=== PATIENT | male | born 1930 | race Caucasian/White ===

== ENCOUNTER 2016-08-18 14:15 | Observation (INO) | payer MEDICARE ==
[~2016-08-18] VITALS: Ht 180.3 cm; Wt 69.5 kg
[~2016-08-18 14:15] MED LIST: ALLO300T2 PO; ASPI81CH CHEW; B12-1CHW CHEW; FENO160T PO; FURO1TAB62 PO; LEVO75TA3 PO; METO100T9 PO; MULT1TAB84 PO; OMEG12002 PO; POTA-163 PO; TAMS5CAP PO; WELC625T2 PO; ZANT150T2 PO
[2016-08-18 14:19] VITALS: BP 144/71; PULSE 72; RESP 18; TEMP 98.7; O2SAT 98
--- NOTE | 2016-08-18 14:47 | PD ---
Physical Exam Time Seen by Provider: 14:46 Narrative 80 y/o male with weakness, 100 lb weight loss, decreased appetite for one year. Vital signs reviewed. Seen at triage desk. Awaiting bed placement. Data Data Last Documented VS Vital Signs Date Time Temp Pulse Resp B/P Pulse Ox O2 Delivery O2 Flow Rate FiO2 08/18/16 14:19 98.7 72 18 144/71 98 Room Air [facility] Medical Record Reviewed: Yes Supervised Visit with SHABNAM: Juan Chambers Aug 18, 2016 14:47
[2016-08-18] MEDS ORDERED: LOSA25TA PO (20:36)
--- NOTE | 2016-08-18 20:38 | PD ---
HPI Chief Complaint: General Weakness Time Seen by Provider: 20:14 Travel History International Travel<30 days: No Contact w/Intl Traveler<30days: No Traveled to known affect area: No History of Present Illness HPI The patient is an 85 year old male who presents to the [facility] emergency department with a history of generalized weakness that he reports has been a problem for the last year. The patient reports that he lives at home alone. He reports that a neighbor helps him to obtain meals any also supplements with boost shakes. The patient reports that he has a home health nurse comes in twice a week along with the physical therapist twice a week and occupational therapy once a week. He reports that he does have a primary care physician that he saw 2 weeks ago, however he fired that physician. The patient's recent history is significant for approximate 3-4 weeks ago having a syncopal event while on the toilet moving his bowels. He reports that he has a history of colitis and moves his bowels normally 3 times per day. He reports that sometimes it is difficult to make it to the toilet. The patient reports that neighbor helped to get him up off of the floor and with picking him up cause pain along his back. The patient has a large right sided flank hematoma with blood extravasation down that appears older along the right side of the back and the right side of the abdomen. He denies having any chest pain or new shortness of breath. The patient does smoke one pack of cigarettes per day. He reports that he has a smoker's cough. Neither coughing more productive recently. The patient denies any known recent fevers, worsening cough or congestion, neck pain, chest pain, worsening shortness of breath, abdominal pain , vomiting, urinary symptoms, one-sided weakness, slurred speech, facial droop, difficulty with word finding ability, vision changes, or numbness or tingling to his extremities. He reports that he has a history of peripheral vascular disease. He has chronic pain in his legs with standing for prolonged period of time. [facility] Past Medical History Narrative Medical The patient's past medical history is significant for peripheral vascular disease, colitis, hypertension, hyperlipidemia, coronary artery disease status post single-vessel coronary artery bypass grafting, history of a bowel obstruction related to an inguinal hernia status post repair and February 2016, history of hypothyroid disorder. Hx Anticoagulant Therapy: Yes (asa) Arthritis: Yes Blood Disorders: No Heart Rhythm Problems: No Cancer: No Cardiovascular Problems: Yes (htn, bypass) High Cholesterol: Yes Chemotherapy: No Chest Pain: No Congestive Heart Failure: No Cerebrovascular Accident: No Diabetes: No Diminished Hearing: No Endocrine: Yes Gastrointestinal Disorders: Yes (PART OF COLON REMOVED) GERD: Yes Genitourinary: No Headaches: Yes (PAIN IN LEFT SIDE OF SKULL POST HALO/BROKEN NECK) Hepatitis: No Hiatal Hernia: Yes Hypertension: Yes Immune Disorder: No Implanted Vascular Access Dvce: No Kidney Stones: No Medical other: Yes (S/P BROKEN NECK, GOUT) Musculoskeletal: Yes Neurologic: No Psychiatric: No Reproductive: No Respiratory: No Immunizations Current: Yes Migraines: No Myocardial Infarction: No Radiation Therapy: No Renal Failure: Yes Seizures: No Thyroid Disease: Yes Ulcer: No Tetanus Vaccination: < 5 Years Influenza Vaccination: No Past Surgical History Narrative Surgical The patient's past surgical history is significant for an abdominal aortic aneurysm repair, appendectomy, hernia repair, cholecystectomy, carotid endarterectomy, dental extractions, cervical halo placement and removal, history of coronary artery bypass grafting of 1 vessel, angioplasty of the right lower extremity. Abdominal Surgery: Yes (AAA REPAIR, COLON RESECTION, APPENDECTOMY) AICD: No Appendectomy: Yes Arteriovenous Shunt: No Body Medical Devices: STERNAL WIRES, MESH FROM HERNIA REPAIR Cardiac Surgery: Yes (CABG 2002 ) Coronary Artery Bypass Graft: Yes Ear Surgery: Yes Endocrine Surgery: No Eye Surgery: Yes (LEFT PTOSIS REPAIRX2) Genitourinary Surgery: No Gynecologic Surgery: No Insulin Pump: No Joint Replacement: No Neurologic Surgery: Yes (C2 (HALO)- 2007, bilateral CAROTID ENDARTERECTOMY) Oral Surgery: Yes (ALL TEETH EXTRACTED) Pacemaker: No Thoracic Surgery: Yes Other Surgery: Yes Social History Alcohol Use: Yes (OCCASIONALLY) Tobacco Use: Yes (1 PPD) Substance Use: No Allergies-Medications (Allergen,Severity, Reaction): Coded Allergies: Altace (Unverified Allergy, Severe, SWOLLEN TONGUE, 08/18/16) Reported Meds & Prescriptions Reported Meds & Active Scripts Active Reported Losartan (Losartan Potassium) 25 Mg Tab 25 Mg PO DAILY Levothyroxine (Levothyroxine Sodium) 75 Mcg Tab 75 Mcg PO DAILY Aspirin 81 Mg Chew 81 Mg CHEW DAILY Zantac (Ranitidine HCl) 150 Mg Tab 150 Mg PO DAILY Allopurinol 300 Mg Tab 300 Mg PO DAILY Metoprolol Succinate ER 24 HR (Metoprolol Succinate) 100 Mg Tab 100 Mg PO DAILY Review of Systems Except as stated in HPI: all other systems reviewed are Neg General / Constitutional: No: Fever Eyes: No: Visual changes HENT: No: Headaches, Rhinorrhea, Congestion, Neck Pain Cardiovascular: Positive: Dyspnea on exertion, No: Chest Pain or Discomfort Respiratory: Positive: Cough, No: Shortness of Breath Gastrointestinal: Positive: Loss of Appetite, No: Nausea, Vomiting, Diarrhea, Abdominal Pain, Constipation, Changes in Bowel Habits, Indigestion Genitourinary: No: Urgency, Frequency, Dysuria Musculoskeletal: Positive: Myalgias, Arthralgias, Pain Skin: No Rash Neurologic: Positive: Weakness (generalized weakness), No: Focal Abnormalities , Change in Mentation, Slurred Speech, Sensory Disturbance Psychiatric: No: Depression Endocrine: No: Polydipsia Hematologic/Lymphatic: No: Easy Bruising Physical Exam Narrative General: The patient is a well-developed thin appearing male in no acute distress. Head and Neck exam: Head is normocephalic atraumatic. Eyes: EOMI, pupils are equal round and reactive to light. Bulbar conjunctival pallor noted. Nose: Midline septum with pink mucous membranes Mouth: Dentition unremarkable. Moist mucus membranes. Posterior oropharynx is not erythematous. No tonsillar hypertrophy. Uvula midline. Airway patent. Neck: No palpable lymphadenopathy. No nuchal rigidity. No thyromegaly. Cardiovascular: Regular rate and rhythm without murmurs, gallops, or rubs. No pulse deficit to the extremities and simultaneous auscultation and palpation of his radial artery. Lungs: Clear to auscultation bilaterally. No wheezes, rhonchi, or rales. Abdomen: Soft, without tenderness to palpation in all 4 quadrants of the abdomen. No guarding, rebound, or rigidity. Normal bowel sounds are audible. No tenderness on palpation of McBurney's point. Negative [place] sign. The patient on examination of his abdomen has right-sided abdominal ecchymosis that appears older appearing. Extremities: No clubbing or cyanosis. The patient has 1+ pitting edema bilateral lower extremities. 2+ pulses in bilateral upper extremities, 1+ pulses in bilateral lower extremities. The patient has dried feces on his feet. Back: No spinous process tenderness to palpation. The patient has right-sided CVA tenderness with an overlying large hematoma palpated. The patient has ecchymosis below this area of hematoma that crosses the midline slightly over to the left and goes all the way down over his sacrum. Neurologic Exam: Cranial nerves 2-12 were intact on exam. Strength is 4/5 in all 4 extremities. No sensory deficits noted. Skin Exam: No rash noted. The patient has an abrasion to the right lateral forearm. Data Data Last Documented VS Vital Signs Date Time Temp Pulse Resp B/P Pulse Ox O2 Delivery O2 Flow Rate FiO2 08/18/16 23:55 62 20 159/80 96 Nasal Cannula 2 08/18/16 14:19 98.7 Orders Electrocardiogram (08/18/16 20:29) Complete Blood Count With Diff (08/18/16 20:29) Comprehensive Metabolic Panel (08/18/16 20:29) Creatine Kinase (Cpk) (08/18/16 20:29) Ckmb (Isoenzyme) Profile (08/18/16 20:29) Troponin I (08/18/16 20:29) B-Type Natriuretic Peptide (08/18/16 20:29) Prothrombin Time / Inr (Pt) (08/18/16 20:29) Act Partial Throm Time (Ptt) (08/18/16 20:29) Lipase (08/18/16 20:29) Urinalysis - C+S If Indicated (08/18/16 20:29) Magnesium (Mg) (08/18/16 20:29) Thyroid Stimulating Hormone (08/18/16 20:29) Iv Access Insert/Monitor (08/18/16 20:29) Ecg Monitoring (08/18/16 20:29) Oximetry (08/18/16 20:29) Type And Screen (08/18/16 20:29) Ct Thor Spine W/O Contrast (08/18/16 20:29) Ct Lumb Spine W/O Contrast (08/18/16 20:29) Cefazolin 2 Gm Premix (Ancef 2 Gm Premix (08/18/16 20:45) Klke-Dpi-Mtwobs (Booster) Inj (Boostrix (08/18/16 20:45) Ct Brain W/O Iv Contrast(Rout) (08/18/16 20:47) Ct Cerv Spine W/O Contrast (08/18/16 20:47) Ct Thorax/ Chest Wo Iv Contras (08/18/16 22:31) Ct Abd/Pel W/O Iv Contrast (08/18/16 22:31) Aspirin Chew (Aspirin Chew) (08/19/16 09:00) Nitroglycerin 2% Oint (Nitroglycerin 2% (08/18/16 23:15) Admit Order (Ed Use Only) (08/19/16 00:26) Place In Observation (08/19/16 ) Vital Signs (Adult) Q4H (08/19/16 00:27) Activity Oob With Assistance (08/19/16 00:27) Bedside Glucose SHANTA.AC&HS (08/19/16 00:27) Sensor Operator / Telemetry .CONTINUOUS (08/19/16 00:27) Intake + Output SHANTA.QSHIFT (08/19/16 00:27) Diet Heart Healthy (08/19/16 Breakfast) Sodium Chloride 0.9% Flush (Ns Flush) (08/19/16 00:30) Sodium Chloride 0.9% Flush (Ns Flush) (08/19/16 09:00) Acetaminophen (Tylenol) (08/19/16 00:30) Ondansetron Inj (Zofran Inj) (08/19/16 00:30) Basic Metabolic Panel (Bmp) (08/20/16 06:00) Complete Blood Count With Diff (08/20/16 06:00) Resp Oxygen Lionel C Titrat 1-4 L (08/19/16 ) Pt Request For Service (08/19/16 00:27) Ot Request For Service (08/19/16 00:27) Case Management Consult (08/19/16 00:27) Heparin Inj (Heparin Inj) (08/19/16 06:00) Scd Bilateral/Knee High SHANTA.BID (08/19/16 00:27) Naloxone Inj (Narcan Inj) (08/19/16 00:30) Docusate Sodium-Senna (Juliet-Colace) (08/19/16 09:00) Magnesium Hydroxide Liq (Milk Of Magnesi (08/19/16 00:30) Labs Laboratory Tests Test 08/18/16 21:00 Prothrombin Time 11.4 SEC Prothromb Time International 1.0 RATIO Ratio Activated Partial 29.5 SEC Thromboplast Time Sodium Level 139 MEQ/L Potassium Level 5.2 MEQ/L Chloride Level 107 MEQ/L Carbon Dioxide Level 23.4 MEQ/L Anion Gap 9 MEQ/L Blood Urea Nitrogen 44 MG/DL Creatinine 2.14 MG/DL Estimat Glomerular Filtration 30 ML/MIN Rate Random Glucose 81 MG/DL Calcium Level 8.4 MG/DL Magnesium Level 2.5 MG/DL Total Bilirubin 1.2 MG/DL Aspartate Amino Transf 41 U/L (AST/SGOT) Alanine Aminotransferase 39 U/L (ALT/SGPT) Alkaline Phosphatase 209 U/L Total Creatine Kinase 79 U/L Troponin I 0.19 NG/ML B-Type Natriuretic Peptide 4992 PG/ML Total Protein 7.8 GM/DL Albumin 3.1 GM/DL Lipase 72 U/L Thyroid Stimulating Hormone 7.650 uIU/ML 3rd Gen Blood Type A POSITIVE Antibody Screen NEGATIVE White Blood Count 4.7 TH/MM3 Red Blood Count 3.06 MIL/MM3 Hemoglobin 9.3 GM/DL Hematocrit 29.9 % Mean Corpuscular Volume 97.7 FL Mean Corpuscular Hemoglobin 30.3 PG Mean Corpuscular Hemoglobin 31.0 % Concent Red Cell Distribution Width 19.8 % Platelet Count 121 TH/MM3 Mean Platelet Volume 8.5 FL Neutrophils (%) (Auto) 60.8 % Lymphocytes (%) (Auto) 17.7 % Monocytes (%) (Auto) 10.9 % Eosinophils (%) (Auto) 9.8 % Basophils (%) (Auto) 0.8 % Neutrophils # (Auto) 2.8 TH/MM3 Lymphocytes # (Auto) 0.8 TH/MM3 Monocytes # (Auto) 0.5 TH/MM3 Eosinophils # (Auto) 0.5 TH/MM3 Basophils # (Auto) 0.0 TH/MM3 CBC Comment DIFF FINAL Differential Comment MDM Medical Decision Making Medical Screen Exam Complete: Yes Emergency Medical Condition: Yes Medical Record Reviewed: Yes Interpretation(s) Last Impressions Chest CT 08/18/162230 Signed Impressions: Service Date/Time: Thursday, August 18, 2016 23:01 - CONCLUSION: Moderate size right pleural effusion and a small left pleural effusion. Prominent mucous plug left bronchus. Some consolidation in the right middle lobe. Dense coronary atherosclerotic disease Héctor Cordova MD Abdomen/Pelvis CT 08/18/162230 Signed Impressions: Service Date/Time: Thursday, August 18, 2016 23:01 - CONCLUSION: Numerous chronic findings. No etiology for abdominal pain is identified. Extensive hernia mesh. Diffuse abdominal wall edema. Free fluid throughout the abdomen Héctor Cordova MD Head CT 08/18/162046 Signed Impressions: Service Date/Time: Thursday, August 18, 2016 22:50 - CONCLUSION: Normal examination. Mild diffuse atrophy is unchanged. Héctor Cordova MD Cervical Spine CT 08/18/162046 Signed Impressions: Service Date/Time: Thursday, August 18, 2016 22:50 - CONCLUSION: Degenerative disease at nearly every level. No evidence of an acute fracture, lytic or blastic lesion. Héctor Cordova MD Thoracic Spine CT 08/18/162028 Signed Impressions: Service Date/Time: Thursday, August 18, 2016 23:08 - CONCLUSION: Compression fractures of T12 and T6 I suspect both are chronic. No definite acute fractures identified. Endplates are grossly intact. Héctor Cordova MD Lumbar Spine CT 08/18/162028 Signed Impressions: Service Date/Time: Thursday, August 18, 2016 23:08 - CONCLUSION: Stable compression fracture of T12. The lumbar spine is unremarkable. Stable in alignment. Héctor Cordova MD Differential Diagnosis Symptomatic anemia related to large flank hematoma, versus intra-abdominal trauma, versus hypothyroid, versus electrolyte derangements, versus dehydration , versus renal failure, versus acute coronary syndrome Narrative Course During the course of the patients emergency department visit, the patients history, examination, and differential diagnosis were reviewed with the patient. The patient had IV access obtained and blood work sent for analysis. The patient was placed on a site monitor with oximetry and blood pressure monitoring. A CT scan of the head, neck, thorax, abdomen and pelvis, T-spine, L -spine was ordered. The patient was initially provided an update of his tetanus, Ancef 2 g IV for prophylaxis of his wounds from the syncopal event. The patients laboratory studies were reviewed and remarkable for a white count of 4.7, hemoglobin 9.3 which is compared to previously with a last hemoglobin of 9.1, platelets 121, monocytosis at 10.9. CMP is remarkable for potassium of 5.2, BUN 44, creatinine 2.14 which is somewhat similar to previous renal insufficiency in this patient, calcium 8.4, total bilirubin 1.2, AST 41, alkaline phosphatase 209. CPK 79, troponin I 0.19, TSH 7.65. The patient's generalized weakness could partly be related to the patient's hypothyroid state. Given the patient's elevated troponin which could be related to the patient's renal insufficiency, as the patient denies having any chest pain or shortness of breath, the patient was given aspirin 162 mg by mouth 1, nitroglycerin 1 inch the chest wall. PT 11.4, PTT 29.5, urinalysis shows 25 RBCs, 9 wbc's, rare bacteria, 46 hyaline casts culture is indicated. Radiology studies were reviewed and remarkable for a CT scan of the head and neck that showed no acute abnormality. CT scan of the thorax revealed a moderate size right pleural effusion and small left pleural effusion. Prominent mucus plugging of the left bronchus, some consolidation in the right middle lobe, dense coronary atherosclerotic disease. CT scan of the abdomen and pelvis showed numerous chronic findings, no etiology [place] the patient's abdominal pain, extensive hernia mesh. Diffuse abdominal wall edema, free fluid through the abdomen. T-spine and L-spine x-rays revealed compression fractures that appear to be chronic, stable. The patients results were discussed with the patient, including the plan of care. I explained that further testing and/ or monitoring is indicated based on the patients history, examination, and/ or laboratory findings. Therefore, I recommended admission for additional evaluation. The patient expressed understanding and was agreeable with this plan. The patient was admitted to the hospital in stable condition and [facility] Physician Communication Physician Communication The patient's case was discussed with Dr. Latif who did agree to admit the patient for further evaluation and treatment at this time. Diagnosis Primary Impression: Syncope Qualified Code: R55 - Syncope, unspecified syncope type Additional Impressions: Generalized weakness Pleural effusion Admitting Information Admitting Physician Requests: it Julieth Lehman MD Aug 18, 2016 20:38
[2016-08-18] MEDS ORDERED: ceFAZolin 2 GM PREMIX 50 ML IV ONE (20:45)
[2016-08-18] MEDS ORDERED: DIPHTH/TETANUS/ACEL PERTUSSIS (BOOSTER) 0.5 ML VIAL/PFS IM ONE (20:45)
[2016-08-18 21:01] VITALS: RESP 16; O2SAT 96
[2016-08-18 21:45] LABS: AUTOMATED NEUTROPHIL # 2.8 TH/MM3 (1.8-7.7); BASOPHIL % 0.8 % (0.0-2.0); EOSINOPHIL # 0.5 TH/MM3 (0-0.4); EOSINOPHIL % 9.8 % (0.0-4.0); HEMATOCRIT 29.9 % (39.0-51.0); HEMO FLAGS DIFF FINAL; LYMPH % 17.7 % (9.0-44.0); LYMPHOCYTE # 0.8 TH/MM3 (1.0-4.8); MEAN CELL VOLUME 97.7 FL (80.0-100.0); MEAN CORPUSCULAR HEMOGLOBIN 30.3 PG (27.0-34.0); MONO % 10.9 % (0.0-8.0); NEUT % 60.8 % (16.0-70.0); PLATELET COUNT 121 TH/MM3 (150-450); RED BLOOD COUNT 3.06 MIL/MM3 (4.50-5.90); RED CELL DISTRIBUTION WIDTH 19.8 % (11.6-17.2); WHITE BLOOD COUNT 4.7 TH/MM3 (4.0-11.0)
[2016-08-18 21:58] LABS: ALT (GPT) 39 U/L (12-78); APTT (PATIENT) 29.5 SEC (24.3-30.1); PROTHROMBIN TIME - PATIENT 11.4 SEC (9.8-11.6)
[2016-08-18 22:12] LABS: ALKALINE PHOSPHATASE 209 U/L (45-117); ANION GAP 9 MEQ/L (5-15); AST (GOT) 41 U/L (15-37); BICARBONATE 23.4 MEQ/L (21.0-32.0); BLOOD UREA NITROGEN 44 MG/DL (7-18); CHLORIDE 107 MEQ/L (98-107); GLOMERULAR FILTRATION RATE 30 ML/MIN (>89); MAGNESIUM 2.5 MG/DL (1.5-2.5); POTASSIUM 5.2 MEQ/L (3.5-5.1); SODIUM (NA) 139 MEQ/L (136-145); TOTAL BILIRUBIN ADULT 1.2 MG/DL (0.2-1.0)
[2016-08-18 22:13] LABS: CREATINE KINASE 79 U/L (39-308)
[2016-08-18 22:51] VITALS: BP 165/95; PULSE 62; RESP 20; O2SAT 96
[2016-08-18] MEDS ORDERED: NITROGLYCERIN 2% OINT 1 GM PACKET TOPICAL ONE (23:15)
--- NOTE | 2016-08-18 23:26 | RADRPT ---
EXAM DATE/TIME: 08/18/2016 22:50 [facility] COMPARISON: CT BRAIN W/O CONTRAST, November 03, 2012, 16:36. INDICATIONS : General weakness and weight loss. Unable to establish acuity. RADIATION DOSE: 69.15 CTDIvol (mGy) MEDICAL HISTORY : Gastroesophageal reflux disease. Hernia, hiatal. Hypertension.Renal failure. SURGICAL HISTORY : CABG Abdominal aortic aneurysm repair.Colon resection.Appendectomy. Bilateral carotid endartectomy. ENCOUNTER: Initial ACUITY: 1 day PAIN SCALE: 0/10 LOCATION: cranial TECHNIQUE: Multiple contiguous axial images were obtained of the head. Using automated exposure control and adj ustment of the mA and/or kV according to patient size, radiation dose was kept as low as reasonably a chievable to obtain optimal diagnostic quality images. FINDINGS: CEREBRUM: The ventricles are normal for age. No evidence of midline shift, mass lesion, hemorrhage or acute in farction. No extra-axial fluid collections are seen. POSTERIOR FOSSA: The cerebellum and brainstem are intact. The 4th ventricle is midline. The cerebellopontine angle i s unremarkable. EXTRACRANIAL: The visualized portion of the orbits is intact. SKULL: The calvaria is intact. No evidence of skull fracture. CONCLUSION: Normal examination. Mild diffuse atrophy is unchanged. Héctor Cordova MD on August 18, 2016 at 23:23 Board Certified Radiologist. This report was verified electronically.
--- NOTE | 2016-08-18 23:39 | RADRPT ---
EXAM DATE/TIME: 08/18/2016 22:50 [facility] COMPARISON: No previous studies available for comparison. INDICATIONS : General weakness and weight loss. RADIATION DOSE: 39.05 CTDIvol (mGy) MEDICAL HISTORY : Gastroesophageal reflux disease. Hernia, hiatal. Hypertension.Renal failure. SURGICAL HISTORY : CABG Abdominal aortic aneurysm repair.Colon resection.Appendectomy. Bilateral carotid endartectomy. ENCOUNTER: Initial ACUITY: 1 day PAIN SCALE: 0/10 LOCATION: neck TECHNIQUE: Volumetric scanning of the cervical spine was performed. Multiplanar reconstructions in the sagittal, coronal and oblique axial planes were performed. Using automated exposure control and adjustment o f the mA and/or kV according to patient size, radiation dose was kept as low as reasonably achievable to obtain optimal diagnostic quality images. FINDINGS: VERTEBRAE: Normal vertebral body height. There is marked intervertebral disc space narrowing at nearly every lev el, particularly at C5-6. The left facets at C2-3 head views. Degenerative facet disease on the right at the same level ALIGNMENT: No evidence of subluxation. C2-C3: The bony spinal canal is normal in size. No evidence of disc bulge or herniation. The neural forami na are bilaterally patent. C3-C4: The bony spinal canal is normal in size. No evidence of disc bulge or herniation. The neural forami na are bilaterally patent. C4-C5: The bony spinal canal is normal in size. No evidence of disc bulge or herniation. The neural forami na are bilaterally patent. C5-C6: The bony spinal canal is normal in size. No evidence of disc bulge or herniation. The neural forami na are bilaterally patent. C6-C7: The bony spinal canal is normal in size. No evidence of disc bulge or herniation. The neural forami na are bilaterally patent. C7-T1: The bony spinal canal is normal in size. No evidence of disc bulge or herniation. The neural forami na are bilaterally patent. CONCLUSION: Degenerative disease at nearly every level. No evidence of an acute fracture, lytic or blastic lesion . Héctor Cordova MD on August 18, 2016 at 23:36 Board Certified Radiologist. This report was verified electronically.
--- NOTE | 2016-08-18 23:43 | RADRPT ---
EXAM DATE/TIME: 08/18/2016 23:01 [facility] COMPARISON: No previous studies available for comparison. INDICATIONS : General weakness and weight loss. RADIATION DOSE: 9.96 CTDIvol (mGy) ; Combined studies - Thorax/Abdomen/Pelvis MEDICAL HISTORY : Gastroesophageal reflux disease. Hernia, hiatal. Hypertension. Renal failure SURGICAL HISTORY : CABG Colon resection.Abdominal aortic aneurysm repair. Appendectomy. Bilateral carotid endartectomy. ENCOUNTER: Initial ACUITY: 1 day PAIN SCALE: 0/10 LOCATION: chest TECHNIQUE: Volumetric scanning of the chest was performed. Using automated exposure control and adjustment of t he mA and/or kV according to patient size, radiation dose was kept as low as reasonably achievable to obtain optimal diagnostic quality images. FINDINGS: LUNGS: Is partial collapse of the right middle lobe. There is bibasilar atelectasis right greater than left. No concerning pulmonary nodule is visualized. Prominent mucous plug left main bronchus PLEURAE: There is no pleural thickening. Moderate size right pleural effusion. Small left pleural effusion MEDIASTINUM: The heart and great vessels demonstrate no acute abnormality although the heart is enlarged and there is dense coronary atherosclerotic disease status post CABG. There is no mediastinal or hilar lympha denopathy. AXILLAE: Within normal limits. No lymphadenopathy. MUSCULOSKELETAL: Numerous healed right-sided rib fractures. MISCELLANEOUS: The visualized upper abdominal organs demonstrate no acute abnormality. Extensive mesh in anterior ab dominal wall CONCLUSION: Moderate size right pleural effusion and a small left pleural effusion. Prominent mucous plug left br onchus. Some consolidation in the right middle lobe. Dense coronary atherosclerotic disease Héctor Cordova MD on August 18, 2016 at 23:39 Board Certified Radiologist. This report was verified electronically.
--- NOTE | 2016-08-18 23:48 | RADRPT ---
EXAM DATE/TIME: 08/18/2016 23:01 [facility] COMPARISON: CT ABDOMEN & PELVIS W/O CONTRAST, March 03, 2016, 0:05. INDICATIONS : General weakness and weight loss. ORAL CONTRAST: No oral contrast ingested. RADIATION DOSE: 9.96 CTDIvol (mGy) ; Combined studies - Thorax/Abdomen/Pelvis MEDICAL HISTORY : Gastroesophageal reflux disease. Hernia, hiatal. Hypertension.Renal failure. SURGICAL HISTORY : CABG Abdominal aortic aneurysm repair.Colon resection.Appendectomy. Bilateral ENCOUNTER: Initial ACUITY: 1 day PAIN SCALE: 0/10 LOCATION: Bilateral abdomen TECHNIQUE: Volumetric scanning of the abdomen and pelvis was performed. Using automated exposure control and ad justment of the mA and/or kV according to patient size, radiation dose was kept as low as reasonably achievable to obtain optimal diagnostic quality images. FINDINGS: LOWER LUNGS: Moderate-sized pleural effusion on the right with numerous healed rib fractures. Small pleural effusi on on the left. Heart is enlarged LIVER: Homogeneous density without lesion. There is no dilation of the biliary tree. Some fluid surrounding the liver and spleen. SPLEEN: Normal size without lesion. PANCREAS: Quite atrophic. KIDNEYS: Normal in size and shape. There is no mass, stone, or hydronephrosis. ADRENAL GLANDS: Within normal limits. VASCULAR: Marked atherosclerotic disease with slight aneurysmal dilatation inferiorly. BOWEL/MESENTERY: The stomach, small bowel, and colon demonstrate no acute abnormality. There is no free intraperitone al air. Scattered free fluid throughout the abdomen and the pelvis. Scattered diverticulosis ABDOMINAL WALL: Large hernia mesh and anterior abdominal wall reduction a large inguinal hernia seen previously. Exte nsive subcutaneous edema. RETROPERITONEUM: There is no lymphadenopathy. BLADDER: No wall thickening or mass. REPRODUCTIVE: Within normal limits. INGUINAL: There is no lymphadenopathy or hernia. MUSCULOSKELETAL: Within normal limits for patient age. CONCLUSION: Numerous chronic findings. No etiology for abdominal pain is identified. Extensive hernia mesh. Diffu se abdominal wall edema. Free fluid throughout the abdomen Héctor Cordova MD on August 18, 2016 at 23:43 Board Certified Radiologist. This report was verified electronically.
[2016-08-18 23:55] VITALS: BP 159/80; PULSE 62; RESP 20; O2SAT 96
[2016-08-19] VITALS (25 sets, daily range): BP systolic 131–151; BP diastolic 73–91; PULSE 59–84; RESP 18–24; TEMP 97.4–98.2; O2SAT 92–100
--- NOTE | 2016-08-19 00:05 | RADRPT ---
EXAM DATE/TIME: 08/18/2016 23:08 [facility] COMPARISON: CT ABDOMEN & PELVIS W/O CONTRAST, March 03, 2016, 0:05. INDICATIONS : General weakness and weight loss. RADIATION DOSE: CTDIvol (mGy) ; Reconstructed from previous dataset MEDICAL HISTORY : Hernia, hiatal. Hypertension. Gastroesophageal reflux disease.Renal failure. SURGICAL HISTORY : CABG Abdominal aortic aneurysm repair.Colon resection.Appendectomy. Bilateral carotid endartectomy. ENCOUNTER: Initial ACUITY: 1 day PAIN SCALE: 0/10 LOCATION: lumbar TECHNIQUE: Volumetric scanning of the lumbar spine was performed. Multiplanar reconstructions in the sagittal, coronal and oblique axial planes were performed. Using automated exposure control and adjustment of the mA and/or kV according to patient size, radiation dose was kept as low as reasonably achievable t o obtain optimal diagnostic quality images. FINDINGS: VERTEBRAE: Normal vertebral body height. Compression fracture of T12 similar to a CT scan in February ALIGNMENT: No evidence of subluxation. T12-L1: The thecal sac has a normal diameter. No evidence of disc bulge or protrusion. The neural foramina are patent bilaterally. L1-L2: The thecal sac has a normal diameter. No evidence of disc bulge or protrusion. The neural foramina are patent bilaterally. L2-L3: The thecal sac has a normal diameter. No evidence of disc bulge or protrusion. The neural foramina are patent bilaterally. L3-L4: The thecal sac has a normal diameter. No evidence of disc bulge or protrusion. The neural foramina are patent bilaterally. L4-L5: The thecal sac has a normal diameter. No evidence of disc bulge or protrusion. The neural foramina are patent bilaterally. Marked degenerative facet disease L5-S1: The thecal sac has a normal diameter. No evidence of disc bulge or protrusion. The neural foramina are patent bilaterally. Marked degenerative facet disease CONCLUSION: Stable compression fracture of T12. The lumbar spine is unremarkable. Stable in alignment. Héctor Cordova MD on August 19, 2016 at 0:02 Board Certified Radiologist. This report was verified electronically.
--- NOTE | 2016-08-19 00:09 | RADRPT ---
EXAM DATE/TIME: 08/18/2016 23:08 [facility] COMPARISON: CT ABDOMEN & PELVIS W/O CONTRAST, March 03, 2016, 0:05. INDICATIONS : General weakness and weight loss. RADIATION DOSE: CTDIvol (mGy) ; Reconstructed from previous dataset MEDICAL HISTORY : Hernia, hiatal. Hypertension. Gastroesophageal reflux disease.Renal failure. SURGICAL HISTORY : CABG Colon resection.Abdominal aortic aneurysm repair.Appendectomy. Bilateral carotid endartectomy. ENCOUNTER: Initial ACUITY: 1 day PAIN SCALE: 0/10 LOCATION: thoracic TECHNIQUE: Volumetric scanning of the thoracic spine was performed. Multiplanar reconstructions in the sagittal , coronal and oblique axial planes were performed. Using automated exposure control and adjustment o f the mA and/or kV according to patient size, radiation dose was kept as low as reasonably achievable to obtain optimal diagnostic quality images. FINDINGS: The vertebral bodies of the thoracic spine are in normal alignment without evidence of subluxation. Chronic compression fracture of T12. Wedging of the T6 vertebral body with 50% of its height loss ant eriorly. There is some vacuum phenomena and below the compression fracture of a sign of benign diseas e.Bilateral pleural effusions right greater left. Prominent mucous plug left bronchus. T1-T2: Normal. T2-T3: The thecal sac has a normal diameter. No evidence of disc bulge or protrusion. T3-T4: The thecal sac has a normal diameter. No evidence of disc bulge or protrusion. T4-T5: The thecal sac has a normal diameter. No evidence of disc bulge or protrusion. T5-T6: The thecal sac has a normal diameter. No evidence of disc bulge or protrusion. T6-T7: The thecal sac has a normal diameter. No evidence of disc bulge or protrusion. T7-T8: The thecal sac has a normal diameter. No evidence of disc bulge or protrusion. T8-T9: The thecal sac has a normal diameter. No evidence of disc bulge or protrusion. T9-T10: The thecal sac has a normal diameter. No evidence of disc bulge or protrusion. T10-T11: The thecal sac has a normal diameter. No evidence of disc bulge or protrusion. T11-T12: The thecal sac has a normal diameter. No evidence of disc bulge or protrusion. T12-L1: The thecal sac has a normal diameter. No evidence of disc bulge or protrusion. CONCLUSION: Compression fractures of T12 and T6 I suspect both are chronic. No definite acute fractures identifie d. Endplates are grossly intact. Héctor Cordova MD on August 19, 2016 at 0:05 Board Certified Radiologist. This report was verified electronically.
[2016-08-19] MEDS ORDERED: NALOXONE HCL 0.4 MG/ML AMP IV PRN (00:30)
[2016-08-19] MEDS ORDERED: ONDANSETRON HCL 4 MG/2 ML VIAL IVP PRN (00:30)
[2016-08-19] MEDS ORDERED: SODIUM CHLORIDE 0.9% FLUSH 10 ML FLUSH IV FLUSH PRN (00:30)
[2016-08-19] MEDS ORDERED: ACETAMINOPHEN 325 MG TAB PO PRN (00:30)
[2016-08-19] MEDS ORDERED: MAGNESIUM HYDROXIDE SUSP 30 ML CUP PO PRN (00:30)
[2016-08-19] MEDS ORDERED: LEVOFLOXACIN 750 MG PREMIX INJ 150 ML IV SCH (01:00)
[2016-08-19 01:46] LABS: BACTERIA, URINE RARE /hpf; BLOOD, URINE MOD (NEG); COMMENT (UR) CULTURE INDICATED; CULTURE IF INDICATED CULTURE INDICATED; GLUCOSE,URINE NEG (NEG); HYALINE CAST, URINE 46 /lpf (RARE); KETONE, URINE NEG (NEG); MUCUS URINE FEW /lpf (OCC); NITRITE,URINE NEG (NEG); SQUAMOUS EPITHELIAL CELL URINE <1 /hpf (0-5); URINE COLOR YELLOW (YELLW/STRAW)
[2016-08-19] MEDS: HEPARIN SODIUM - SQ 10,000 UNITS/ML VIAL SQ SCH ×3 (06:00→21:43)
[2016-08-19] MEDS: FUROSEMIDE 40 MG/4 ML VIAL IV PUSH SCH ×3 (06:15→17:58)
[2016-08-19] MEDS: ASPIRIN 81 MG CHEW TAB CHEW SCH (08:36)
[2016-08-19] MEDS: SODIUM CHLORIDE 0.9% FLUSH 10 ML FLUSH IV FLUSH SCH ×2 (08:36→21:00)
[2016-08-19] MEDS: DOCUSATE SODIUM 50 MG/SENNA 8.6 MG TAB PO SCH ×2 (08:37→21:00)
--- NOTE | 2016-08-19 14:31 | HHI.HP ---
HPI Service [facility] Primary Care Physician No Primary Care Physician Admission Diagnosis Generalized weakness, hypothyroid, right pleural effusion Diagnoses: Chief Complaint: weakness, falls Travel History International Travel<30 Days: No Contact w/Intl Traveler <30 Da: No Traveled to Known Affected Are: No History of Present Illness Written by Ashlie Hancock, acting as scribe for Dr. Leigh on 08/19/16 at 14:02. 85-year-old male with history of PVD, HTN, HLD, CAD s/p CABG, prior bowel obstruction, hypothyroidism, presents with worsening generalized weakness and falls at home. The patient reports he has been dealing with dizziness and balance issues for a long time now. He lives alone with his cat, but has PT, OT , and nursing, who come to his house a few times a week. He states at baseline he is usually able to ambulate around his home by holding onto the field and furniture, however this has been difficult lately. He also reports that when he falls, he could not get up on his own. Patient states his weakness has gotten much worse and he "couldn't take it anymore". He states he "just didn't feel right". Multiple medical complaints were reported to the ER physician, however the patient downplays much of this upon interview. He denies any recent fevers/chills, chest pain, shortness breath, or abdominal pains. Patient denies any other medical complaints at this time. Of note, patient states his house has bugs, is currently under the process of getting fumigated, and he cannot go home until or Thursday. Review of Systems ROS Limitations: Poor Historian Except as stated in HPI: all other systems reviewed are Neg Past Family Social History Past Medical History PVD HTN HLD CAD s/p CABG prior bowel obstruction colitis hypothyroidism Past Surgical History AAA repair Colon Resection Appendectomy Hernia repair Cholecystectomy Carotid endarterectomy Dental extractions Cervical halo placement and removal CABG 1 vessel RLE angioplasty Left ptosis by surgery repair Reported Medications Losartan (Losartan Potassium) 25 Mg Tab 25 Mg PO DAILY Levothyroxine (Levothyroxine Sodium) 75 Mcg Tab 75 Mcg PO DAILY Aspirin 81 Mg Chew 81 Mg CHEW DAILY Zantac (Ranitidine HCl) 150 Mg Tab 150 Mg PO DAILY Allopurinol 300 Mg Tab 300 Mg PO DAILY Lasix (Furosemide) 20 Mg Tab 20 Mg PO DAILY PRN Metoprolol Succinate ER 24 HR (Metoprolol Succinate) 100 Mg Tab 100 Mg PO DAILY Allergies: Coded Allergies: Altace (Unverified Allergy, Severe, SWOLLEN TONGUE, 08/18/16) Active Ordered Medications Current Medications Medications (Trade) Dose Ordered Sig/Carlos Route Start Time Stop Time Status Last Admin (Aspirin Chew) 162 mg DAILY CHEW 08/19/16 09:00 08/19/16 08:36 (NS Flush) 2 ml UNSCH PRN IV FLUSH 08/19/16 00:30 (NS Flush) 2 ml BID IV FLUSH 08/19/16 09:00 08/19/16 08:36 (Tylenol) 650 mg Q4H PRN PO 08/19/16 00:30 (Zofran Inj) 4 mg Q6H PRN IVP 08/19/16 00:30 (Heparin Inj) 5,000 units Q8H SQ 08/19/16 06:00 08/19/16 06:00 (Narcan Inj) 0.4 mg UNSCH PRN IV 08/19/16 00:30 (Juliet-Colace) 1 tab BID PO 08/19/16 09:00 Magnesium Hydroxide 30 ml 30 ml Q12H PRN PO 08/19/16 00:30 (Levaquin 750 Mg Premix Inj) 150 ml @ 100 mls/hr Q48H IV 08/19/16 01:00 08/19/16 01:00 (Lasix Inj) 40 mg BID@09,18 IV PUSH 08/19/16 06:15 08/19/16 06:15 Family History Father with heart disease, with KS at age 79 Mother with aortic vessel disease, age 87 Social History Smokes tobacco, 1 PPD since age 10, however patient argues that he never actually smokes it but instead will let it burn out ashtray next to him. Denies any alcohol or illicit drug use Lives alone with a cat, has home health care PT/OT/Nursing Ambulates at baseline by holding onto field/furniture, does have a walker Physical Exam Vital Signs Vital Signs Date Time Temp Pulse Resp B/P Pulse Ox O2 Delivery O2 Flow Rate FiO2 08/19/16 13:10 75 08/19/16 12:09 66 08/19/16 11:32 66 08/19/16 11:27 97.4 68 20 151/79 96 130/78 140/73 08/19/16 10:10 92 21 08/19/16 10:02 69 08/19/16 09:36 67 08/19/16 08:26 84 08/19/16 07:45 79 08/19/16 07:44 98.2 62 22 131/78 100 08/19/16 06:47 98.0 63 18 145/84 97 08/19/16 06:39 64 20 146/79 Nasal Cannula 2 08/19/16 04:54 65 24 139/91 95 Nasal Cannula 2 08/18/16 23:55 62 20 159/80 96 Nasal Cannula 2 08/18/16 22:51 62 20 165/95 96 08/18/16 21:01 16 96 Room Air 08/18/16 20:31 58 16 98 Room Air 08/18/16 14:19 98.7 72 18 144/71 98 Room Air Physical Exam GENERAL: Well-nourished, well-developed elderly male patient in [facility]. SKIN: Warm and dry. No rash. Ecchymosis throughout back from the right scapula extending down to the right costophrenic area, appears old, nontender. HEAD: Normocephalic. Atraumatic. EYES: Pupils equal and round. No scleral icterus. No injection or drainage. ENT: No nasal bleeding or discharge. Mucous membranes pink and moist. NECK: Supple. Trachea midline. CARDIOVASCULAR: Regular rate and rhythm. S1, S2 noted. No murmur appreciated. RESPIRATORY: No accessory muscle use. Breath sounds diminished at bilateral bases, otherwise clear to auscultation. Breath sounds equal bilaterally. GASTROINTESTINAL: Abdomen soft, non-tender, nondistended. Normoactive bowel sounds x4. MUSCULOSKELETAL: No obvious deformities. 1+ bilateral lower extremity edema distal to the knees. Multiple superficial abrasions throughout lower extremities. NEUROLOGICAL: Awake and alert. No obvious cranial nerve deficits. Motor grossly within normal limits. Normal speech. PSYCHIATRIC: Appropriate mood and affect; insight and judgment normal. Laboratory Laboratory Tests Test 08/18/16 08/19/16 08/19/16 21:00 01:30 10:36 Prothrombin Time 11.4 Prothromb Time International 1.0 Ratio Activated Partial 29.5 Thromboplast Time Sodium Level 139 Potassium Level 5.2 Chloride Level 107 Carbon Dioxide Level 23.4 Anion Gap 9 Blood Urea Nitrogen 44 Creatinine 2.14 Estimat Glomerular Filtration 30 Rate Random Glucose 81 Calcium Level 8.4 Magnesium Level 2.5 Total Bilirubin 1.2 Aspartate Amino Transf 41 (AST/SGOT) Alanine Aminotransferase 39 (ALT/SGPT) Alkaline Phosphatase 209 Total Creatine Kinase 79 Troponin I 0.19 B-Type Natriuretic Peptide 4992 Total Protein 7.8 Albumin 3.1 Lipase 72 Thyroid Stimulating Hormone 7.650 3rd Gen Blood Type A POSITIVE Antibody Screen NEGATIVE White Blood Count 4.7 Red Blood Count 3.06 Hemoglobin 9.3 Hematocrit 29.9 Mean Corpuscular Volume 97.7 Mean Corpuscular Hemoglobin 30.3 Mean Corpuscular Hemoglobin 31.0 Concent Red Cell Distribution Width 19.8 Platelet Count 121 Mean Platelet Volume 8.5 Neutrophils (%) (Auto) 60.8 Lymphocytes (%) (Auto) 17.7 Monocytes (%) (Auto) 10.9 Eosinophils (%) (Auto) 9.8 Basophils (%) (Auto) 0.8 Neutrophils # (Auto) 2.8 Lymphocytes # (Auto) 0.8 Monocytes # (Auto) 0.5 Eosinophils # (Auto) 0.5 Basophils # (Auto) 0.0 CBC Comment DIFF FINAL Differential Comment Urine Color YELLOW Urine Turbidity HAZY Urine pH 6.0 Urine Specific [place] 1.017 Urine Protein 300 Urine Glucose (UA) NEG Urine Ketones NEG Urine Occult Blood MOD Urine Nitrite NEG Urine Bilirubin NEG Urine Urobilinogen LESS THAN 2.0 Urine Leukocyte Esterase NEG Urine RBC 25 Urine WBC 9 Urine Squamous Epithelial <1 Cells Urine Bacteria RARE Urine Hyaline Casts 46 Urine Mucus FEW Microscopic Urinalysis Comment CULTURE INDICATED Free Thyroxine 0.99 Total Triiodothyronine 57 Date/Time Procedure Status Source Growth 08/19/16 01:30 Urine Culture Received Urine Clean Catch Pending Result Diagram: 08/18/16209908/18/162099 Imaging Last Impressions Chest CT 08/18/162230 Signed Impressions: Service Date/Time: Thursday, August 18, 2016 23:01 - CONCLUSION: Moderate size right pleural effusion and a small left pleural effusion. Prominent mucous plug left bronchus. Some consolidation in the right middle lobe. Dense coronary atherosclerotic disease Héctor Cordova MD Abdomen/Pelvis CT 08/18/162230 Signed Impressions: Service Date/Time: Thursday, August 18, 2016 23:01 - CONCLUSION: Numerous chronic findings. No etiology for abdominal pain is identified. Extensive hernia mesh. Diffuse abdominal wall edema. Free fluid throughout the abdomen Héctor Cordova MD Head CT 08/18/162046 Signed Impressions: Service Date/Time: Thursday, August 18, 2016 22:50 - CONCLUSION: Normal examination. Mild diffuse atrophy is unchanged. Héctor Cordova MD Cervical Spine CT 08/18/162046 Signed Impressions: Service Date/Time: Thursday, August 18, 2016 22:50 - CONCLUSION: Degenerative disease at nearly every level. No evidence of an acute fracture, lytic or blastic lesion. Héctor Cordova MD Thoracic Spine CT 08/18/162028 Signed Impressions: Service Date/Time: Thursday, August 18, 2016 23:08 - CONCLUSION: Compression fractures of T12 and T6 I suspect both are chronic. No definite acute fractures identified. Endplates are grossly intact. Héctor Cordova MD Lumbar Spine CT 08/18/162028 Signed Impressions: Service Date/Time: Thursday, August 18, 2016 23:08 - CONCLUSION: Stable compression fracture of T12. The lumbar spine is unremarkable. Stable in alignment. Héctor Cordova MD Assessment and Plan Problem List: (1) Generalized weakness ICD Code: R53.1 Status: Acute (2) Ischemic cardiomyopathy ICD Code: I25.5 Status: Acute (3) Acute worsening of stage 3 chronic kidney disease ICD Code: N18.3 Status: Acute (4) Elevated troponin ICD Code: R74.8 Status: Acute (5) Acute systolic CHF (congestive heart failure) ICD Code: I50.21 Status: Acute Assessment and Plan 85-year-old male with history of PVD, HTN, HLD, CAD s/p CABG, prior bowel obstruction, hypothyroidism, presents with worsening generalized weakness and falls at home. Generalized weakness, Falls, Failed Outpatient Treatment with HHC: Suspect secondary to acute on chronic deconditioning with multiple medical comorbidities. -Head CT images reviewed, grossly normal, mild diffuse atrophy -C-spine CT images reviewed, shows diffuse degenerative disease at nearly every level, no acute fractures -T-spine CT images reviewed, shows stable compression fractures at T12 and T6 , suspect both are chronic; no definite acute fractures -L-spine CT images reviewed, shows degenerative changes, otherwise unremarkable -Orthostatics slightly positive, will add laci hose, recheck orthostatics -TSH elevated, suspect hypothyroidism contributing to weakness, will increase patient's synthroid -Check vitamin B12, vitamin D -Consult PT/OT Suspect New Onset CHF, Pleural Effusions with elevated BNP: unclear etiology, patient denies history of CHF however suspect CHF exacerbation with LE edema, effusions, BNP 4992, and hx of CAD s/p CABG -check echocardiogram -give IV Lasix 40mg bid -monitor on telemetry -continue aspirin, beta reyna -check lipid panel in am -monitor Is&Os Elevated Troponin: patient denies chest pain, suspect troponin elevation secondary to CKD vs CHF -EKG reviewed by me, shows sinus rhythm, moderate intraventricular conduction delay; ST depression in V5, V6, consider lateral ischemia -continue aspirin, metoprolol -monitor on telemetry -will continue to trend cardiac enzymes -consult patient's knitting demonstrator Dr. Fabian Hypothyroidism: with elevated TSH, T3 slightly low, T4 wnl -suspect noncompliance with Synthroid -will increase patient's Synthroid dosing from 75mcg to 125mcg daily -repeat TSH/T3/T4 in 3 months as outpatient Hypertension: chronic -continue patient's metoprolol -hold patient's ARB -monitor BP, adjust antihypertensives as needed Acute on Chronic Kidney Disease, stage III: suspect secondary to dehydration -holding patient's ARB -avoid nephrotoxins -monitor BMP while on diuresis DVT Prophylaxis: teds/SCDs This note was transcribed by carol [Ashlie Hancock]. I, Dr. Mykel Leigh personally performed the history, physical exam, and medical decision making; and confirmed the accuracy of the information in the transcribed note. Authenticated by Dr. Mykel Leigh on 08/19/16 at 14:33. Physician Certification 2 Midnight Certification Type: Admission for Inpatient Services Order for Inpatient Services The services are ordered in accordance with Medicare regulations or non- Medicare payer requirements, as applicable. In the case of services not specified as inpatient-only, they are appropriately provided as inpatient services in accordance with the 2-midnight benchmark. Estimated LOS (days): 3 days is the estimated time the patient will need to remain in the hospital, assuming treatment plan goals are met and no additional complications. Post-Hospital Plan: Not yet determined Ashlie Hancock PA-C Aug 19, 2016 14:31 Mykel Leigh MD Aug 19, 2016 14:34
[2016-08-19] MEDS ORDERED: METOPROLOL SUCCINATE 50 MG EXTENDED RELEASE TAB PO ONE (15:30)
[2016-08-19] MEDS: hydrALAZINE HCL 25 MG TAB PO SCH ×2 (15:39→21:42)
--- NOTE | 2016-08-19 19:06 | MB ---
cc: SANKET FRAZIER M.D. DATE OF CONSULTATION August 19, 2016 REASON FOR CONSULTATION Cardiomyopathy and congestive heart failure. HISTORY Mr. Stringer is an 85-year-old white gentleman well-known to me with history of ASHD, remote myocardial infarction, ischemic cardiomyopathy with moderate left ventricular dysfunction, and mild to moderate aortic stenosis with moderate mitral regurgitation. The patient was last seen by me back in March and follow-up office appointment and was doing reasonably well. His medications were modified at that time with the addition of Losartan and increased dose of Furosemide. The patient states that over the past few weeks he has been feeling extremely weak. He has had home health care nursing visiting a few days a week. He says he has full-time help at home but lives alone. He apparently fell a few weeks ago and tells me that a neighbor found him and was trying to pick him up and injured him while doing so. He denies to me any episodes of passing out or loss of consciousness. He says he has just been feeling extremely weak and when he falls down because of imbalance he has difficulty getting back up. He has a large hematoma on the right flank and had some rib fractures which he tells me he incurred when the neighbor tried to pick him up a few weeks ago. Currently, he is asymptomatic, lying in bed. He denies any chest pain or shortness of breath. He states he has been taking all of his medications at home as directed. He is concerned because he has not had many of his cardiac medications yet today here in the hospital. PAST MEDICAL HISTORY Longstanding hypertension, diverticulitis, ASHD, ischemic cardiomyopathy, psoriasis, ejection fraction 37% by noninvasive testing in February. Mild to moderate aortic stenosis, moderate mitral regurgitation, COPD secondary to tobacco abuse and CKD. Had a remote myocardial infarction and has wall motion abnormalities in the anterior wall, septum and distal inferior apex. ALLERGIES LUPE INHIBITORS IN THE FORM OF ALTACE CAUSES THROAT TO SWELL AND POSSIBLE ANESTHESIA INTOLERANCES. MEDICATIONS Prior to admission 1. Fenofibrate 160 milligrams daily. 2. Fish oil supplements. 3. Levothyroxine 75 milligrams daily which apparently he was not taking appropriately according to the ER note. 4. Losartan 25 milligrams daily. 5. Furosemide 40 milligrams daily. PAST SURGICAL HISTORY Coronary bypass grafting x4 vessels June 14, 2002. Abdominal aortic aneurysm repair, colon resection, appendectomy, abdominal wall hernia repair with recently redone in April of this year by Dr. Collins. Bilateral carotid endarterectomies, cervical surgery, laparoscopic cholecystectomy. SOCIAL HISTORY The patient continues to smoke cigarettes, about a pack a day despite multiple attempts at counseling to get him to quit. He does no regular exercise and he is becoming more and more sedentary and weak and unable to care for himself at his home. Denies any alcohol intake at this time, although, had moderate intake in the past. Denies any illicit drug use. FAMILY HISTORY Noncontributory. REVIEW OF SYSTEMS Denies lower extremity edema. He has bilateral claudication. Denies resting or exertional chest discomfort, dyspnea, orthopnea or PND type symptoms. Denies fevers, chills, night sweats, nausea, vomiting, diarrhea. Does tell me that his food intake has been poor lately but he has been drinking a lot of water. Except for that mentioned in HPI his complete 12-point review of systems is otherwise negative. PHYSICAL EXAMINATION GENERAL: Physical exam reveals an elderly, ill appearing and frail white male lying in bed in no distress at this time. VITAL SIGNS: Blood pressure 148/83 mmHg, heart rate is 70 and regular, respiratory rate 20, temperature 97.5, oxygen saturation 95% on room air. HEENT: Head is normocephalic and atraumatic. Pupils are equal, round and reactive to light. Sclerae anicteric. Extraocular movement intact. NECK: The neck is supple. There is no adenopathy. There is mild jugular venous distension at 45 degrees noted. Carotid upstrokes normal. LUNGS: Lungs have decreased breath sounds bilaterally. Dullness at the bases right greater than left, scattered rhonchi. No rales. HEART: PMI is laterally displaced and diffuse. S1-S2 are normal. There is a 2/6 systolic murmur at the left sternal border and base. No diastolic murmur. An S3 gallop is heard. No rubs. ABDOMEN: Benign. There is some abdominal wall hernia noted. There is a large 6 to 8 cm hematoma on the right flank with ecchymosis over the abdomen and back noted. EXTREMITIES: Extremities reveal no cyanosis, clubbing with trace pitting edema below the knees bilaterally. Perfusion is adequate, although, pulses are diminished in lower extremities. NEUROLOGIC: Exam is nonfocal. CARDIOLOGY STUDIES The EKG from admission last night at 20:29 shows a sinus rhythm, rate 62, old anteroseptal infarct. There are lateral ST-T-wave abnormalities, consider ischemia. Abnormal EKG. IMAGING STUDIES CT of the chest shows moderate sized right pleural effusion and a small left pleural effusion, prominent mucous plug left bronchus, consolidation of the right middle lobe, dense coronary atherosclerotic disease. CT of the abdomen and pelvis shows numerous chronic findings. No etiology for abdominal pain. Extensive hernia mesh. Diffuse abdominal wall edema. Free fluid throughout the abdomen. Head CT shows no bleed. He has multiple vertebral fractures noted lumbar, thoracic and cervical spine CT. Cervical spine CT showed no acute findings. The lumbar CT showed a stable fracture of T12 and the thoracic spine CT showed a compression fracture of T12 and T6. LABORATORY DATA CBC white count 4.7, hemoglobin 9.3, hematocrit 29.9, platelet count 121,000. Coags were normal. Chemistries, initial CPK was 79. Troponin I 0.19. An alkaline phosphatase 209, AST 41, BNP 4992. Repeat CPK and troponins are pending. A TSH was 7.65, magnesium level 2.5, BUN 44, creatinine 2.14, glucose 81, sodium 139, potassium 5.2, chloride 107, CO2 23.4. IMPRESSION 1. Progressive weakness and frequent falling with injuries. 2. ASHD with ischemic cardiomyopathy and moderate left ventricular dysfunction. 3. Chronic systolic congestive heart failure. 4. Carotid ASO status post bilateral carotid endarterectomies. 5. ASHD status post CABG x4 vessels June 14, 2002. 6. Acute on chronic kidney disease. 7. Tobacco abuse, continues to smoke without plans to quit. 8. History of abdominal aortic aneurysm status post repair. 9. Severe peripheral arterial disease status post revascularizations. 10. Elevated troponin and BNP. RECOMMENDATIONS I suspect his elevated troponin, BNP are probably related to his multiple medical problems, renal insufficiency, left ventricular dysfunction and recent injuries and do not reflect significant acute destabilization or ACS. Will continue to monitor those. Because of his acute renal insufficiency I have discontinued his ARB, his angiotensin receptor reyna, losartan because his potassium is getting on the high side and will replace that with hydralazine and nitrates preparations. Will restart his beta reyna therapy, Toprol XL 50 at milligrams a day, and advance that as tolerated. Continue intravenous furosemide today and aspirin as ordered. An echocardiogram was just completed and results are pending and I will review that to see if there has been any changes since February. Preliminarily, it appears his left ventricular function was somewhat less than it was in February. I had a long discussion with the patient about his failing health and his progressive heart disease. He is not a candidate for surgical interventions due to his multiple medical problems and debilitated state. We will continue this conversation tomorrow to determine exactly how aggressive he would like us to be in his management but I suspect he will want us to continue with conservative measures. I will follow him with you. Thank you for allowing us to participate in the care of this patient. MD TAWNY Davalos/EARNEST /4:12 PM /6:39 PM
[2016-08-19] MEDS ORDERED: diphenhydrAMINE HCL 25 MG CAP PO ONE (22:45)
[2016-08-20] VITALS (23 sets, daily range): BP systolic 122–158; BP diastolic 70–86; PULSE 53–73; RESP 18–20; TEMP 97.8–98.2; O2SAT 92–98
[2016-08-20] MEDS: ISOSORBIDE MONONITRATE 20 MG TAB PO SCH ×2 (05:45→15:24)
[2016-08-20] MEDS: LEVOTHYROXINE SODIUM 125 MCG TAB PO SCH (05:45)
[2016-08-20] MEDS: hydrALAZINE HCL 25 MG TAB PO SCH ×3 (05:45→21:07)
[2016-08-20] MEDS: HEPARIN SODIUM - SQ 10,000 UNITS/ML VIAL SQ SCH ×3 (05:46→21:08)
[2016-08-20 07:06] LABS: AUTOMATED NEUTROPHIL # 3.7 TH/MM3 (1.8-7.7); BASOPHIL % 0.4 % (0.0-2.0); EOSINOPHIL # 0.3 TH/MM3 (0-0.4); EOSINOPHIL % 5.8 % (0.0-4.0); HEMATOCRIT 25.6 % (39.0-51.0); HEMO FLAGS DIFF FINAL; LYMPH % 13.8 % (9.0-44.0); LYMPHOCYTE # 0.7 TH/MM3 (1.0-4.8); MEAN CELL VOLUME 95.4 FL (80.0-100.0); MEAN CORPUSCULAR HEMOGLOBIN 31.2 PG (27.0-34.0); MEAN CORPUSCULAR HGB CONC 32.7 % (32.0-36.0); MONO % 6.9 % (0.0-8.0); NEUT % 73.1 % (16.0-70.0); PLATELET COUNT 112 TH/MM3 (150-450); RED BLOOD COUNT 2.68 MIL/MM3 (4.50-5.90); RED CELL DISTRIBUTION WIDTH 19.2 % (11.6-17.2)
[2016-08-20 07:08] LABS: ANION GAP 8 MEQ/L (5-15); AST (GOT) 26 U/L (15-37); BLOOD UREA NITROGEN 49 MG/DL (7-18); CHLORIDE 107 MEQ/L (98-107); GLOMERULAR FILTRATION RATE 26 ML/MIN (>89); POTASSIUM 4.8 MEQ/L (3.5-5.1); SODIUM (NA) 140 MEQ/L (136-145)
[2016-08-20 07:09] LABS: ALT (GPT) 21 U/L (12-78)
--- NOTE | 2016-08-20 07:10 | EKG ---
Date Performed: 08/18/2016 Time Performed: 21:53:20 PTAGE: 85 years EKG: Sinus rhythm MODERATE INTRAVENTRICULAR CONDUCTION DELAY ST DEVIATION AND MODERATE T-WAVE ABNORMALITY, CONSIDER LA TERAL ISCHEMIA ABNORMAL ECG Compared to the PREVIOUS TRACING previously seen PVCs are no longer present, nonspecific ST wave changes are present anterolaterally PREVIOUS TRACIN03/03/2016 07.49 DOCTOR: Mickie Scott Interpretating Date/Time 08/20/2016 07:10:05
--- NOTE | 2016-08-20 07:18 | PD.CARD.PN ---
Subjective Subjective Remarks Feeling better. Denies CP or SOB. Insisting on going home by tomorrow. Objective Medications Current Medications Medications (Trade) Dose Ordered Sig/Carlos Route PRN Reason Start Time Stop Time Status Last Admin Dose Admin Aspirin (Aspirin Chew) 162 mg DAILY CHEW 08/19/16 09:00 08/19/16 08:36 Sodium Chloride (NS Flush) 2 ml UNSCH PRN IV FLUSH FLUSH AFTER USING IV ACCESS 08/19/16 00:30 Sodium Chloride (NS Flush) 2 ml BID IV FLUSH 08/19/16 09:00 08/19/16 21:00 Acetaminophen (Tylenol) 650 mg Q4H PRN PO TEMP > 100.4 08/19/16 00:30 Ondansetron HCl (Zofran Inj) 4 mg Q6H PRN IVP NAUSEA OR VOMITING 08/19/16 00:30 Heparin Sodium (Porcine) (Heparin Inj) 5,000 units Q8H SQ 08/19/16 06:00 08/20/16 05:46 Naloxone HCl (Narcan Inj) 0.4 mg UNSCH PRN IV SEE LABEL COMMENTS 08/19/16 00:30 Senna/Docusate Sodium (Juliet-Colace) 1 tab BID PO 08/19/16 09:00 Magnesium Hydroxide (Milk Of Magnesia Liq) 30 ml Q12H PRN PO MILD - MODERATE CONSTIPATION 08/19/16 00:30 Furosemide (Lasix Inj) 40 mg BID@09,18 IV PUSH 08/19/16 06:15 08/19/16 17:58 Levothyroxine Sodium (Synthroid) 125 mcg DAILY@06 PO 08/20/16 06:00 08/20/16 05:45 Metoprolol Succinate (Toprol Xl) 100 mg DAILY PO 08/20/16 09:00 Famotidine (Pepcid) 10 mg BID PO 08/20/16 09:00 Hydralazine HCl (Apresoline) 25 mg Q8HR PO 08/19/16 15:30 08/20/16 05:45 Isosorbide Mononitrate (Ismo) 20 mg BID@07,14 PO 08/20/16 07:00 08/20/16 05:45 Vital Signs / I&O Vital Signs Date Time Temp Pulse Resp B/P Pulse Ox O2 Delivery O2 Flow Rate FiO2 08/20/16 06:00 60 08/20/16 05:00 61 08/20/16 04:00 56 08/20/16 04:00 98.2 73 18 124/70 96 08/20/16 03:00 60 08/20/16 02:00 62 08/20/16 01:00 60 08/20/16 00:00 62 08/20/16 00:00 98.0 62 18 158/83 96 08/19/16 23:00 62 08/19/16 22:00 60 08/19/16 21:32 96 21 08/19/16 21:00 60 08/19/16 20:00 59 08/19/16 20:00 98.2 67 18 151/76 96 08/19/16 19:00 60 08/19/16 18:24 74 08/19/16 17:13 72 08/19/16 16:37 69 08/19/16 15:53 60 08/19/16 15:51 97.5 70 20 148/83 95 136/78 142/73 08/19/16 14:27 73 08/19/16 13:10 75 08/19/16 12:09 66 08/19/16 11:32 66 08/19/16 11:27 97.4 68 20 151/79 96 130/78 140/73 08/19/16 10:10 92 21 08/19/16 10:02 69 08/19/16 09:36 67 08/19/16 08:26 84 08/19/16 07:45 79 08/19/16 07:44 98.2 62 22 131/78 100 I/O 08/19/16 08/19/16 08/19/16 08/20/16 08/20/16 08/20/16 07:00 15:00 23:00 07:00 15:00 23:00 Intake Total 640 ml 360 ml Output Total 450 ml 1050 ml Balance 190 ml -690 ml Intake Oral 640 ml 360 ml Output Urine Total 450 ml 1050 ml # Voids 1 # Bowel Movements 1 0 Physical Exam VSS, afebrile No JVD Lungs CTA, decreased BS at bases R>L. Heart: RRR, 2/6 systolic murmur Ext; No cyanosis. Warm well perfused. Trace edema LE. Neuro: Non-focal Laboratory Laboratory Tests Test 08/19/16 10:36 Total Creatine Kinase 58 U/L Troponin I 0.14 NG/ML Vitamin B12 Level 1056 PG/ML 25-Hydroxy Vitamin D Total 28.8 ng/ML Free Thyroxine 0.99 NG/DL Total Triiodothyronine 57 NG/DL Imaging Last [address] 08/18/162230 Signed Impressions: Service Date/Time: Thursday, August 18, 2016 23:01 - CONCLUSION: Moderate size right pleural effusion and a small left pleural effusion. Prominent mucous plug left bronchus. Some consolidation in the right middle lobe. Dense coronary atherosclerotic disease Héctor Cordova MD Abdomen/Pelvis CT 08/18/162230 Signed Impressions: Service Date/Time: Thursday, August 18, 2016 23:01 - CONCLUSION: Numerous chronic findings. No etiology for abdominal pain is identified. Extensive hernia mesh. Diffuse abdominal wall edema. Free fluid throughout the abdomen Héctor Cordova MD Head CT 08/18/[id number] Signed Impressions: Service Date/Time: Thursday, August 18, 2016 22:50 - CONCLUSION: Normal examination. Mild diffuse atrophy is unchanged. Héctor Cordova MD Cervical Spine CT [id number]/18/162046 Signed Impressions: Service Date/Time: Thursday, August 18, 2016 22:50 - CONCLUSION: Degenerative disease at nearly every level. No evidence of an acute fracture, lytic or blastic lesion. Héctor Cordova MD Thoracic Spine CT 08/18/[id number] Signed Impressions: Service Date/Time: Thursday, August 18, 2016 23:08 - CONCLUSION: Compression fractures of T12 and T6 I suspect both are chronic. No definite acute fractures identified. Endplates are grossly intact. Héctor Cordova MD Lumbar Spine CT 08/18/162028 Signed Impressions: Service Date/Time: Thursday, August 18, 2016 23:08 - CONCLUSION: Stable compression fracture of T12. The lumbar spine is unremarkable. Stable in alignment. Héctor Cordova MD Assessment and Plan Problem List: (1) ASHD (arteriosclerotic heart disease) (2) Ischemic cardiomyopathy Assessment and Plan: Severe LV dysfunction. EF = 20- 25% (3) Tobacco abuse (4) HTN (hypertension) (5) Protein-calorie malnutrition, mild (6) Pleural effusion (7) Hx of CABG (8) Acute on chronic kidney failure (9) Mitral regurgitation Assessment and Plan: Moderate to severe. (10) Aortic stenosis Assessment and Plan: Mild to moderate. (11) Troponin level elevated Assessment and Plan: Trending down. Likely related to CKD, CHF and recent trauma/hematoma. Assessment and Plan Patients overall health had been declining significantly over the past year. He plans to continue to smoke cigarettes. His LV ejection fraction is now severely reduced and has moderate to severe MR. Overall prognosis is poor. He is too high risk for any surgical interventions. I discussed his condition with him in detail today. He does not want heroic or aggressive measures. My recommendation at this point would be going to an ACF or even considering hospice at home. Patient insists on going home with [facility] but it is unlikely that he will be able to care for himself much longer. I have made some medication changes. No LUPE/ARB/spironolactone prescribed. He is allergic to LUPE and will stay off ARB/ spironolactone due to CKD and concern about hyperkalemia. Hydralazine/ isosorbide and furosemide prescribed in their place. cover maker to PO furosemide after AM IV dose today. Discussed Condition With Patient and staffing rn. Timothy Askew MD Aug 20, 2016 07:18 Timothy Askew MD Aug 20, 2016 07:18
[2016-08-20 07:23] LABS: ALKALINE PHOSPHATASE 166 U/L (45-117); FREE T3 1.28 PG/ML (2.18-3.98); HDL CHOLESTEROL 54.1 MG/DL (40.0-60.0); LDL CHOLESTEROL 30 MG/DL (0-99); THYROXINE (T4) 6.3 MCG/DL (4.5-12.1)
[2016-08-20] MEDS: ASPIRIN 81 MG CHEW TAB CHEW SCH (08:56)
[2016-08-20] MEDS: FAMOTIDINE 20 MG TAB PO SCH ×2 (08:56→21:07)
[2016-08-20] MEDS: SODIUM CHLORIDE 0.9% FLUSH 10 ML FLUSH IV FLUSH SCH ×2 (08:57→21:07)
[2016-08-20] MEDS: METOPROLOL SUCCINATE 50 MG EXTENDED RELEASE TAB PO SCH (08:57)
[2016-08-20] MEDS: FUROSEMIDE 40 MG/4 ML VIAL IV PUSH SCH (08:57)
[2016-08-20] MEDS: DOCUSATE SODIUM 50 MG/SENNA 8.6 MG TAB PO SCH ×2 (08:58→21:07)
--- NOTE | 2016-08-20 12:35 | ECHRPT ---
Indication: Indication: CONCLUSIONS Moderately dilated left ventricle. The left ventricular systolic function is severely reduced with a n estimated ejection fraction in the range of 25-30%. There is severe hypokinesis of the mid to distal anterior wall apex and distal inferior field. Moderate to sevee global hypokinesis.The right ventricle is severely dilated with moderately decreased systolic functi on..The left atrial size is upper limits of normal.The right atrial size is moderately dilated.Mild thickening of the mitral valve chris flets. Calcification of the posterior mitral valve leaflet. Moderate to severe +3 mitral valve regurgitation.Heavily calcified and thicken ed. Mild to moderate aortic valve stenosis. Transvalvular gradients may be underestimated due to poor LV function.There is moderate tr icuspid valve regurgitation.The pulmonary valve is not well visualized.The inferior vena cava isdilated with reduc ed respiratory variation. BP: 151 / 79 HR: 45 Rhythm: Sinus MEASUREMENTS (Male / Female) Normal Values Technical Quality:Good 2D ECHO LV Diastolic Diameter PLAX 5.8 cm 4.2 - 5.9 / 3.9 - 5.3 cm LV Systolic Diameter PLAX 4.8 cm IVS Diastolic Thickness 1.1 cm 0.6 - 1.0 / 0.6 - 0.9 cm LVPW Diastolic Thickness 1.1 cm 0.6 - 1.0 / 0.6 - 0.9 cm LV Relative Wall Thickness 0.4 RV Internal Dim ED PLAX 5.0 cm LVOT Diameter 2.0 cm LA Systolic Diameter LX 4.0 cm 3.0 - 4.0 / 2.7 - 3.8 cm LV Ejection Fraction MOD 4C 32.1 % LV Cardiac Index MOD 4C 1846.2 cm/minm LV Ejection Fraction 4C AL 33.5 % LV Cardiac Index 4C AL 1988.6 cm/minm M-MODE Aortic Root Diameter MM 3.4 cm LA Systolic Diameter MM 3.9 cm LA Ao Ratio MM 1.1 AV Cusp Separation MM 0.9 cm DOPPLER AV Peak Velocity 266.0 cm/s AV Peak Gradient 28.3 mmHg AV Mean Gradient 13.5 mmHg AV Velocity Time Integral 51.8 cm LVOT Peak Velocity 77.8 cm/s LVOT Peak Gradient 2.4 mmHg LVOT Velocity Time Integral 16.7 cm LVOT Cardiac Index 1210.8 cm/minm AV Area Cont Eq vti 1.0 cm AV Area Cont Eq pk 0.9 cm MV Area PHT 3.6 cm Mitral E Point Velocity 79.5 cm/s Mitral A Point Velocity 39.5 cm/s Mitral E to A Ratio 2.0 LV E' Lateral Velocity 6.8 cm/s Mitral E to LV E' Lateral Ratio 11.7 LV E' Septal Velocity 3.5 cm/s Mitral E to LV E' Septal Ratio 22.6 TV Peak Velocity 297.0 cm/s PV Peak Velocity 107.0 cm/s PV Peak Gradient 4.6 mmHg FINDINGS Left Ventricle Moderately dilated left ventricle. The left ventricular systolic function is severely reduced with a n estimated ejection fraction in the range of 25-30%. There is severe hypokinesis of the mid to distal anterior wall apex and distal inferior field. Moderate to sevee global hypokinesis. Right Ventricle The right ventricle is severely dilated with moderately decreased systolic function.. Left Atrium The left atrial size is upper limits of normal. Right Atrium The right atrial size is moderately dilated. Atrial Septum Normal atrial septal thickness without atrial level shunting by limited color doppler interrogation. Aorta The aortic root and proximal ascending aorta are normal in size on limited imaging. Mitral Valve Mild thickening of the mitral valve leaflets. Calcification of the posterior mitral valve leaflet. M oderate to severe +3 mitral valve regurgitation. Aortic Valve Trileaflet aortic valve. Heavily calcified and thickened. Mild to moderate aortic valve stenosis. Transvalvular gradients may be underestimated due to poor LV function. Tricuspid Valve Structurally normal tricuspid valve. There is moderate tricuspid valve regurgitation. Pulmonary Valve The pulmonary valve is not well visualized. Vessels The inferior vena cava isdilated with reduced respiratory variation. Pericardium No pericardial effusion. Timothy Askew MD Edited by: Verified Identity Pass CV Appeals Analyst (Electronically Signed) Final Date:20 August 2016 03:50 Amended: 20 August 2016 12:34
--- NOTE | 2016-08-20 12:37 | HHI.PR ---
Subjective Remarks Follow-up for generalized weakness, cardiomyopathy. Patient is currently doing well. Resting in bed without any supplemental oxygen. He is able to ambulate in the room with the help of a walker. Patient wants to go home. He does not want to consider hospice at this point. Objective Vitals Vital Signs Date Time Temp Pulse Resp B/P Pulse Ox O2 Delivery O2 Flow Rate FiO2 08/20/16 12:28 97.8 55 20 128/71 95 08/20/16 10:50 92 21 08/20/16 08:00 60 08/20/16 06:00 60 08/20/16 05:00 61 08/20/16 04:00 56 08/20/16 04:00 98.2 73 18 124/70 96 08/20/16 03:00 60 08/20/16 02:00 62 08/20/16 01:00 60 08/20/16 00:00 62 08/20/16 00:00 98.0 62 18 158/83 96 08/19/16 23:00 62 08/19/16 22:00 60 08/19/16 21:32 96 21 08/19/16 21:00 60 08/19/16 20:00 59 08/19/16 20:00 98.2 67 18 151/76 96 08/19/16 19:00 60 08/19/16 18:24 74 08/19/16 17:13 72 08/19/16 16:37 69 08/19/16 15:53 60 08/19/16 15:51 97.5 70 20 148/83 95 136/78 142/73 08/19/16 14:27 73 08/19/16 13:10 75 I/O 08/19/16 08/19/16 08/19/16 08/20/16 08/20/16 08/20/16 07:00 15:00 23:00 07:00 15:00 23:00 Intake Total 640 ml 360 ml Output Total 450 ml 1050 ml Balance 190 ml -690 ml Intake Oral 640 ml 360 ml Output Urine Total 450 ml 1050 ml # Voids 1 # Bowel Movements 1 0 Result Diagram: 08/20/16 0548 08/20/16 0548 Imaging Last Impressions Chest CT 08/18/16 5480 Signed Impressions: Service Date/Time: Thursday, August 18, 2016 23:01 - CONCLUSION: Moderate size right pleural effusion and a small left pleural effusion. Prominent mucous plug left bronchus. Some consolidation in the right middle lobe. Dense coronary atherosclerotic disease Héctor Cordova MD Abdomen/Pelvis CT 08/18/162230 Signed Impressions: Service Date/Time: Thursday, August 18, 2016 23:01 - CONCLUSION: Numerous chronic findings. No etiology for abdominal pain is identified. Extensive hernia mesh. Diffuse abdominal wall edema. Free fluid throughout the abdomen Héctor Cordova MD Head CT 08/18/162046 Signed Impressions: Service Date/Time: Thursday, August 18, 2016 22:50 - CONCLUSION: Normal examination. Mild diffuse atrophy is unchanged. Héctor Cordova MD Cervical Spine CT 08/18/162046 Signed Impressions: Service Date/Time: Thursday, August 18, 2016 22:50 - CONCLUSION: Degenerative disease at nearly every level. No evidence of an acute fracture, lytic or blastic lesion. Héctor Cordova MD Thoracic Spine CT 08/18/162028 Signed Impressions: Service Date/Time: Thursday, August 18, 2016 23:08 - CONCLUSION: Compression fractures of T12 and T6 I suspect both are chronic. No definite acute fractures identified. Endplates are grossly intact. Héctor Cordova MD Lumbar Spine CT 08/18/162028 Signed Impressions: Service Date/Time: Thursday, August 18, 2016 23:08 - CONCLUSION: Stable compression fracture of T12. The lumbar spine is unremarkable. Stable in alignment. Héctor Cordova MD Objective Remarks GENERAL: Alert, NAD. SKIN: Warm and dry. HEAD: Normocephalic. EYES: No scleral icterus. No injection or drainage. NECK: Supple, trachea midline. No JVD or lymphadenopathy. CARDIOVASCULAR: Regular rate and rhythm without murmurs, gallops, or rubs. RESPIRATORY: Breath sounds equal bilaterally. No accessory muscle use. GASTROINTESTINAL: Abdomen soft, non-tender, nondistended. MUSCULOSKELETAL: No cyanosis. 1+ edema in lower ext. BACK: Nontender without obvious deformity. No CVA tenderness. Procedures echo 08/19/2016 Moderately dilated left ventricle. The left ventricular systolic function is severely reduced with an estimated ejection fraction in the range of 25-30%. There is severe hypokinesis of the mid to distal anterior wall apex and distal inferior field. Moderate to sevee global hypokinesis.The right ventricle is severely dilated with moderately decreased systolic function..The left atrial size is upper limits of normal.The right atrial size is moderately dilated.Mild thickening of the mitral valve leaflets. Calcification of the posterior mitral valve leaflet. Moderate to severe +3 mitral valve regurgitation.Heavily calcified and thickened. Mild to moderate aortic valve stenosis. Transvalvular gradients may be underestimated due to poor LV function.There is moderate tricuspid valve regurgitation.The pulmonary valve is not well visualized.The inferior vena cava isdilated with reduced respiratory variation. A/P Problem List: (1) Generalized weakness ICD Code: R53.1 Status: Acute (2) Ischemic cardiomyopathy ICD Code: I25.5 Status: Acute (3) Acute worsening of stage 3 chronic kidney disease ICD Code: N18.3 Status: Acute (4) Elevated troponin ICD Code: R74.8 Status: Acute (5) Acute systolic CHF (congestive heart failure) ICD Code: I50.21 Status: Acute Assessment and Plan 85-year-old male with history of PVD, HTN, HLD, CAD s/p CABG, prior bowel obstruction, hypothyroidism, presents with worsening generalized weakness and falls at home. Systolic CHF exacerbation -BNP 4992, and hx of CAD s/p CABG -echocardiogram --> EF 20-25%. -Received IV Lasix 40mg bid -- > Lasix 40mg Qday from today. -monitor on telemetry -continue aspirin 162mg Qday, Metoprolol succ 100mg Qday. Elevated Troponin: patient denies chest pain, suspect troponin elevation secondary to CKD vs CHF -Dr. Fabian following. Hypothyroidism: with elevated TSH, T3 slightly low, T4 Normal. -suspect noncompliance with Synthroid -will increase patient's Synthroid dosing from 75mcg to 125mcg daily -repeat TSH/T3/T4 in 3 months as outpatient Hypertension: chronic -continue patient's metoprolol -hold patient's ARB -monitor BP, adjust antihypertensives as needed Acute on Chronic Kidney Disease, stage III: suspect secondary to dehydration -holding patient's ARB -avoid nephrotoxins Full code. Heparin SQ. Probable discharge on 08/21/2016. Cleopatra Pollard DO Aug 20, 2016 12:37
[2016-08-20] MEDS ORDERED: LORazepam 0.5 MG TAB PO ONE (22:45)
[2016-08-21] VITALS (10 sets, daily range): BP systolic 150–154; BP diastolic 84–94; PULSE 54–90; RESP 18; TEMP 97.7–97.8; O2SAT 95
[2016-08-21] MEDS: hydrALAZINE HCL 25 MG TAB PO SCH (04:48)
[2016-08-21] MEDS: HEPARIN SODIUM - SQ 10,000 UNITS/ML VIAL SQ SCH (04:48)
[2016-08-21] MEDS: LEVOTHYROXINE SODIUM 125 MCG TAB PO SCH (04:48)
[2016-08-21] MEDS: ISOSORBIDE MONONITRATE 20 MG TAB PO SCH (05:54)
--- NOTE | 2016-08-21 07:30 | PD.CARD.PN ---
Subjective Subjective Remarks Feeling better. Denies CP or SOB. Want's to go home today. Objective Medications Current Medications Medications (Trade) Dose Ordered Sig/Carlos Route PRN Reason Start Time Stop Time Status Last Admin Dose Admin Aspirin (Aspirin Chew) 162 mg DAILY CHEW 08/19/16 09:00 08/20/16 08:56 Sodium Chloride (NS Flush) 2 ml UNSCH PRN IV FLUSH FLUSH AFTER USING IV ACCESS 08/19/16 00:30 Sodium Chloride (NS Flush) 2 ml BID IV FLUSH 08/19/16 09:00 08/20/16 21:07 Acetaminophen (Tylenol) 650 mg Q4H PRN PO TEMP > 100.4 08/19/16 00:30 Ondansetron HCl (Zofran Inj) 4 mg Q6H PRN IVP NAUSEA OR VOMITING 08/19/16 00:30 Heparin Sodium (Porcine) (Heparin Inj) 5,000 units Q8H SQ 08/19/16 06:00 08/21/16 04:48 Naloxone HCl (Narcan Inj) 0.4 mg UNSCH PRN IV SEE LABEL COMMENTS 08/19/16 00:30 Senna/Docusate Sodium (Juliet-Colace) 1 tab BID PO 08/19/16 09:00 08/20/16 21:07 Magnesium Hydroxide (Milk Of Magnjitendra Liq) 30 ml Q12H PRN PO MILD - MODERATE CONSTIPATION 08/19/16 00:30 Levothyroxine Sodium (Synthroid) 125 mcg DAILY@06 PO 08/20/16 06:00 08/21/16 04:48 Metoprolol Succinate (Toprol Xl) 100 mg DAILY PO 08/20/16 09:00 08/20/16 08:57 Famotidine (Pepcid) 10 mg BID PO 08/20/16 09:00 08/20/16 21:07 Hydralazine HCl (Apresoline) 25 mg Q8HR PO 08/19/16 15:30 08/21/16 04:48 Isosorbide Mononitrate (Ismo) 20 mg BID@07,14 PO 08/20/16 07:00 08/21/16 05:54 Furosemide (Lasix) 40 mg DAILY PO 08/21/16 09:00 Vital Signs / I&O Vital Signs Date Time Temp Pulse Resp B/P Pulse Ox O2 Delivery O2 Flow Rate FiO2 6/8/17 06:01 59 08/21/16 05:01 73 08/21/16 04:01 56 08/21/16 03:01 62 08/21/16 03:01 97.7 66 18 154/94 95 08/21/16 02:01 63 08/21/16 01:01 90 08/21/16 00:18 54 08/20/16 23:01 97.8 56 18 151/86 97 08/20/16 23:01 56 08/20/16 22:01 53 08/20/16 21:01 55 08/20/16 20:01 65 08/20/16 19:01 59 08/20/16 19:01 98.2 62 20 122/71 98 08/20/16 18:28 72 08/20/16 17:38 95 21 08/20/16 16:00 98.2 62 20 122/71 98 08/20/16 16:00 72 08/20/16 15:00 70 08/20/16 14:00 72 08/20/16 13:00 56 08/20/16 12:28 97.8 55 20 128/71 95 08/20/16 12:00 70 08/20/16 11:00 58 08/20/16 10:50 92 21 08/20/16 08:00 60 I/O 08/20/16 08/20/16 08/20/16 08/21/16 08/21/16 08/21/16 07:00 15:00 23:00 07:00 15:00 23:00 Intake Total 360 ml 120 ml 480 ml Output Total 1050 ml Balance -690 ml 120 ml 480 ml Intake Oral 360 ml 120 ml 480 ml Output Urine Total 1050 ml # Voids 2 # Bowel Movements 0 0 Physical Exam VSS, afebrile No JVD Lungs CTA, decreased BS at bases R>L. Heart: RRR, 2/6 systolic murmur Ext; No cyanosis. Warm well perfused. Trace edema LE. Neuro: Non-focal Laboratory Laboratory Tests Test 08/18/16 08/19/16 08/19/16 08/20/16 21:00 01:30 10:36 05:48 Prothrombin Time 11.4 SEC Prothromb Time International 1.0 RATIO Ratio Activated Partial 29.5 SEC Thromboplast Time Magnesium Level 2.5 MG/DL B-Type Natriuretic Peptide 4992 PG/ML Lipase 72 U/L Blood Type A POSITIVE Antibody Screen NEGATIVE Urine Color YELLOW Urine Turbidity HAZY Urine pH 6.0 Urine Specific [place] 1.017 Urine Protein 300 mg/dL Urine Glucose (UA) NEG mg/dL Urine Ketones NEG mg/dL Urine Occult Blood MOD Urine Nitrite NEG Urine Bilirubin NEG Urine Urobilinogen LESS THAN 2.0 MG/DL Urine Leukocyte Esterase NEG Urine RBC 25 /hpf Urine WBC 9 /hpf Urine Squamous Epithelial <1 /hpf Cells Urine Bacteria RARE /hpf Urine Hyaline Casts 46 /lpf Urine Mucus FEW /lpf Microscopic Urinalysis Comment CULTURE INDICATED Total Creatine Kinase 58 U/L Troponin I 0.14 NG/ML Vitamin B12 Level 1056 PG/ML 25-Hydroxy Vitamin D Total 28.8 ng/ML Free Thyroxine 0.99 NG/DL Total Triiodothyronine 57 NG/DL White Blood Count 5.0 TH/MM3 Red Blood Count 2.68 MIL/MM3 Hemoglobin 8.4 GM/DL Hematocrit 25.6 % Mean Corpuscular Volume 95.4 FL Mean Corpuscular Hemoglobin 31.2 PG Mean Corpuscular Hemoglobin 32.7 % Concent Red Cell Distribution Width 19.2 % Platelet Count 112 TH/MM3 Mean Platelet Volume 8.6 FL Neutrophils (%) (Auto) 73.1 % Lymphocytes (%) (Auto) 13.8 % Monocytes (%) (Auto) 6.9 % Eosinophils (%) (Auto) 5.8 % Basophils (%) (Auto) 0.4 % Neutrophils # (Auto) 3.7 TH/MM3 Lymphocytes # (Auto) 0.7 TH/MM3 Monocytes # (Auto) 0.3 TH/MM3 Eosinophils # (Auto) 0.3 TH/MM3 Basophils # (Auto) 0.0 TH/MM3 CBC Comment DIFF FINAL Differential Comment Sodium Level 140 MEQ/L Potassium Level 4.8 MEQ/L Chloride Level 107 MEQ/L Carbon Dioxide Level 25.0 MEQ/L Anion Gap 8 MEQ/L Blood Urea Nitrogen 49 MG/DL Creatinine 2.35 MG/DL Estimat Glomerular Filtration 26 ML/MIN Rate Random Glucose 74 MG/DL Calcium Level 8.1 MG/DL Total Bilirubin 1.0 MG/DL Aspartate Amino Transf 26 U/L (AST/SGOT) Alanine Aminotransferase 21 U/L (ALT/SGPT) Alkaline Phosphatase 166 U/L Total Protein 6.2 GM/DL Albumin 2.4 GM/DL Triglycerides Level 71 MG/DL Cholesterol Level 98 MG/DL LDL Cholesterol 30 MG/DL HDL Cholesterol 54.1 MG/DL Cholesterol/HDL Ratio 1.81 RATIO Thyroxine (T4) 6.3 MCG/DL Free Triiodothyronine (T3) 1.28 PG/ML pg/dL Thyroid Stimulating Hormone 5.910 uIU/ML 3rd Gen Assessment and Plan Problem List: (1) ASHD (arteriosclerotic heart disease) Assessment and Plan: Stable. (2) Ischemic cardiomyopathy Assessment and Plan: Severe LV dysfunction. Currently compensated. (3) Acute on chronic systolic CHF (congestive heart failure) Assessment and Plan: NYHA FCII-III (4) Tobacco abuse (5) HTN (hypertension) (6) Protein-calorie malnutrition, mild (7) Pleural effusion (8) Hx of CABG (9) Acute on chronic kidney failure (10) Mitral regurgitation Assessment and Plan: Moderate to severe. (11) Aortic stenosis (12) Troponin level elevated (13) Pulmonary arterial hypertension Assessment and Plan Patients overall health had been declining significantly over the past year. He plans to continue to smoke cigarettes. His LV ejection fraction is now severely reduced and has moderate to severe MR. Overall prognosis is poor. I did discuss what would be needed for further cardiac workup including cardiac catheterization and associated risks including worsening renal failure and need for dialysis. He has declined that workup. I believe he is a prohibitive risk for any surgical interventions in any case. I discussed his condition again with him in detail today. He does not want heroic or aggressive measures. My recommendation at this point would be going to an ACF or even considering hospice at home. Patient insists on going home with [facility] but it is unlikely that he will be able to care for himself much longer. I have made some medication changes. No LUPE/ARB/spironolactone prescribed. He is allergic to LUPE and will stay off ARB/ spironolactone due to CKD and concern about hyperkalemia. Hydralazine/ isosorbide and furosemide prescribed in their place. OK to discharge home from my standpoint. I will make arrangement to F/ U as outpatient in the nextx few weeks. Discussed Condition With Patient. Timothy Askew MD Aug 21, 2016 07:30
--- NOTE | 2016-08-21 08:48 | HHI.FF ---
Face to Face Verification Diagnosis: (1) Generalized weakness (2) Acute systolic CHF (congestive heart failure) (3) Mitral regurgitation Physical Therapy Order: Evaluate and Treat, Improve ambulation, Strength and gait training Home Health Nursing Order: Medical education Signs/symptoms of disease process CHF education Nursing assessment with vital signs I have seen patient Taqueria Stringer on 08/21/16. My clinical findings support the need for the requested home health care services because: Ltd mobility - disease progression Deconditioned w/ increased weakness Limited ability to care for self Need for psychosocial assistance High risk of falls I certify that my clinical findings support that this patient is homebound because: Unsteady gait/balance Unsafe to leave home unassisted Need for psychosocial assistance Unable to use public transportation Cleopatra Pollard DO Aug 21, 2016 8:48 am
[2016-08-21] MEDS ORDERED: FURO40TA PO (08:53)
[2016-08-21] MEDS ORDERED: HYDR-3799 PO (08:53)
[2016-08-21] MEDS ORDERED: ISOS20TA PO (08:53)
[2016-08-21] MEDS ORDERED: LEVO.125 PO (08:53)
[2016-08-21] MEDS ORDERED: FUROSEMIDE 40 MG TAB PO SCH (09:00)
[2016-08-21] MEDS: FAMOTIDINE 20 MG TAB PO SCH (09:05)
[2016-08-21] MEDS: SODIUM CHLORIDE 0.9% FLUSH 10 ML FLUSH IV FLUSH SCH (09:05)
[2016-08-21] MEDS: METOPROLOL SUCCINATE 50 MG EXTENDED RELEASE TAB PO SCH (09:05)
[2016-08-21] MEDS: ASPIRIN 81 MG CHEW TAB CHEW SCH (09:05)
[2016-08-21] MEDS: DOCUSATE SODIUM 50 MG/SENNA 8.6 MG TAB PO SCH (09:05)
--- NOTE | 2016-08-21 10:42 | HHI.DS ---
Discharge Summary Admission Date Aug 19, 2016 at 12:29 am Discharge Date: Aug 21, 2016 Admitting Diagnosis Generalized weakness, hypothyroid, right pleural effusion (1) Generalized weakness ICD Code: R53.1 Diagnosis: Principal (2) Ischemic cardiomyopathy ICD Code: I25.5 Diagnosis: Principal (3) Acute worsening of stage 3 chronic kidney disease ICD Code: N18.3 (4) Elevated troponin ICD Code: R74.8 (5) Acute systolic CHF (congestive heart failure) ICD Code: I50.21 Procedures echo 08/19/2016 Moderately dilated left ventricle. The left ventricular systolic function is severely reduced with an estimated ejection fraction in the range of 25-30%. There is severe hypokinesis of the mid to distal anterior wall apex and distal inferior field. Moderate to sevee global hypokinesis.The right ventricle is severely dilated with moderately decreased systolic function..The left atrial size is upper limits of normal.The right atrial size is moderately dilated.Mild thickening of the mitral valve leaflets. Calcification of the posterior mitral valve leaflet. Moderate to severe +3 mitral valve regurgitation.Heavily calcified and thickened. Mild to moderate aortic valve stenosis. Transvalvular gradients may be underestimated due to poor LV function.There is moderate tricuspid valve regurgitation.The pulmonary valve is not well visualized.The inferior vena cava isdilated with reduced respiratory variation. Brief History - From Admission Written by Ashlie Hancock, acting as scribe for Dr. Leigh on 08/19/16 at 14:02. 85-year-old male with history of PVD, HTN, HLD, CAD s/p CABG, prior bowel obstruction, hypothyroidism, presents with worsening generalized weakness and falls at home. The patient reports he has been dealing with dizziness and balance issues for a long time now. He lives alone with his cat, but has PT, OT , and nursing, who come to his house a few times a week. He states at baseline he is usually able to ambulate around his home by holding onto the field and furniture, however this has been difficult lately. He also reports that when he falls, he could not get up on his own. Patient states his weakness has gotten much worse and he "couldn't take it anymore". He states he "just didn't feel right". Multiple medical complaints were reported to the ER physician, however the patient downplays much of this upon interview. He denies any recent fevers/chills, chest pain, shortness breath, or abdominal pains. Patient denies any other medical complaints at this time. Of note, patient states his house has bugs, is currently under the process of getting fumigated, and he cannot go home until or Thursday. CBC/BMP: 08/20/16 0548 08/20/16 0548 Significant Findings Laboratory Tests Test 08/18/16 08/19/16 08/19/16 08/20/16 21:00 01:30 10:36 05:48 Potassium Level 5.2 MEQ/L (3.5-5.1) Blood Urea Nitrogen 44 MG/DL (7-18) 49 MG/DL (7-18) Creatinine 2.14 MG/DL 2.35 MG/DL (0.60-1.30) (0.60-1.30) Estimat Glomerular Filtration 30 ML/MIN (>89) 26 ML/MIN (>89) Rate Calcium Level 8.4 MG/DL 8.1 MG/DL (8.5-10.1) (8.5-10.1) Total Bilirubin 1.2 MG/DL (0.2-1.0) Aspartate Amino Transf 41 U/L (15-37) (AST/SGOT) Alkaline Phosphatase 209 U/L 166 U/L (45-117) (45-117) Troponin I 0.19 NG/ML 0.14 NG/ML (0.02-0.05) (0.02-0.05) B-Type Natriuretic Peptide 4992 PG/ML (0-100) Albumin 3.1 GM/DL 2.4 GM/DL (3.4-5.0) (3.4-5.0) Lipase 72 U/L (73-393) Thyroid Stimulating Hormone 7.650 uIU/ML 5.910 uIU/ML 3rd Gen (0.358-3.740) (0.358-3.740) Red Blood Count 3.06 MIL/MM3 2.68 MIL/MM3 (4.50-5.90) (4.50-5.90) Hemoglobin 9.3 GM/DL 8.4 GM/DL (13.0-17.0) (13.0-17.0) Hematocrit 29.9 % 25.6 % (39.0-51.0) (39.0-51.0) Mean Corpuscular Hemoglobin 31.0 % Concent (32.0-36.0) Red Cell Distribution Width 19.8 % 19.2 % (11.6-17.2) (11.6-17.2) Platelet Count 121 TH/MM3 112 TH/MM3 (150-450) (150-450) Monocytes (%) (Auto) 10.9 % (0.0-8.0) Eosinophils (%) (Auto) 9.8 % (0.0-4.0) 5.8 % (0.0-4.0) Lymphocytes # (Auto) 0.8 TH/MM3 0.7 TH/MM3 (1.0-4.8) (1.0-4.8) Eosinophils # (Auto) 0.5 TH/MM3 (0-0.4) Urine Turbidity HAZY (CLEAR) Urine Protein 300 mg/dL (NEG-TRACE) Urine Occult Blood MOD (NEG) Urine RBC 25 /hpf (0-3) Urine WBC 9 /hpf (0-5) Urine Bacteria RARE /hpf (NONE) Urine Mucus FEW /lpf (OCC) Vitamin B12 Level 1056 PG/ML (193-986) 25-Hydroxy Vitamin D Total 28.8 ng/ML (30-100) Total Triiodothyronine 57 NG/DL (60-181) Neutrophils (%) (Auto) 73.1 % (16.0-70.0) Total Protein 6.2 GM/DL (6.4-8.2) Cholesterol Level 98 MG/DL (120-200) Free Triiodothyronine (T3) 1.28 PG/ML pg/dL (2.18-3.98) Imaging Last Impressions Chest CT 08/18/162230 Signed Impressions: Service Date/Time: Thursday, August 18, 2016 23:01 - CONCLUSION: Moderate size right pleural effusion and a small left pleural effusion. Prominent mucous plug left bronchus. Some consolidation in the right middle lobe. Dense coronary atherosclerotic disease Héctor Cordova MD Abdomen/Pelvis CT 08/18/162230 Signed Impressions: Service Date/Time: Thursday, August 18, 2016 23:01 - CONCLUSION: Numerous chronic findings. No etiology for abdominal pain is identified. Extensive hernia mesh. Diffuse abdominal wall edema. Free fluid throughout the abdomen Héctor Cordova MD Head CT 08/18/162046 Signed Impressions: Service Date/Time: Thursday, August 18, 2016 22:50 - CONCLUSION: Normal examination. Mild diffuse atrophy is unchanged. Héctor Cordova MD Cervical Spine CT 08/18/162046 Signed Impressions: Service Date/Time: Thursday, August 18, 2016 22:50 - CONCLUSION: Degenerative disease at nearly every level. No evidence of an acute fracture, lytic or blastic lesion. Héctor Cordova MD Thoracic Spine CT 08/18/162028 Signed Impressions: Service Date/Time: Thursday, August 18, 2016 23:08 - CONCLUSION: Compression fractures of T12 and T6 I suspect both are chronic. No definite acute fractures identified. Endplates are grossly intact. Héctor Cordova MD Lumbar Spine CT 08/18/162028 Signed Impressions: Service Date/Time: Thursday, August 18, 2016 23:08 - CONCLUSION: Stable compression fracture of T12. The lumbar spine is unremarkable. Stable in alignment. Héctor Cordova MD PE at Discharge GENERAL: Alert, NAD. SKIN: Warm and dry. HEAD: Normocephalic. EYES: No scleral icterus. No injection or drainage. NECK: Supple, trachea midline. No JVD or lymphadenopathy. CARDIOVASCULAR: Regular rate and rhythm without murmurs, gallops, or rubs. RESPIRATORY: Breath sounds equal bilaterally. No accessory muscle use. GASTROINTESTINAL: Abdomen soft, non-tender, nondistended. MUSCULOSKELETAL: No cyanosis. 1+ edema in lower ext. BACK: Nontender without obvious deformity. No CVA tenderness. Pt update on day of discharge And is currently doing well. No acute concerns. Wants to go home. Hospital Course 85-year-old male with history of PVD, HTN, HLD, CAD s/p CABG, prior bowel obstruction, hypothyroidism, presents with worsening generalized weakness and falls at home. Systolic CHF exacerbation -BNP 4992, and hx of CAD s/p CABG -echocardiogram --> EF 20-25%. -Received IV Lasix 40mg bid -- > Lasix 40mg Qday -monitor on telemetry -continue aspirin 162mg Qday, Metoprolol succ 100mg Qday. Elevated Troponin: patient denies chest pain, suspect troponin elevation secondary to CKD vs CHF -Dr. Fabian following. Hypothyroidism: with elevated TSH, T3 slightly low, T4 Normal. -suspect noncompliance with Synthroid -will increase patient's Synthroid dosing from 75mcg to 125mcg daily -repeat TSH/T3/T4 in 3 months as outpatient Hypertension: chronic -continue patient's metoprolol -hold patient's ARB -monitor BP, adjust antihypertensives as needed Acute on Chronic Kidney Disease, stage III: suspect secondary to dehydration -holding patient's ARB -avoid nephrotoxins Full code. Heparin SQ. Pt Condition on Discharge: Good Discharge Disposition: Disch w/ Home Health Serv Discharge Time: > 30 minutes Discharge Instructions DIET: Follow Instructions for: Heart Healthy Diet Activities you can perform: Regular-No Restrictions Follow up Referrals: Cardiology - 10 Days with Timothy Askew MD PCP Follow-up - 1 Week New Medications: Furosemide (Furosemide) 40 Mg Tab 40 MG PO DAILY Heart #30 TAB Hydralazine HCl (Hydralazine HCl) 25 Mg Tablet 25 MG PO Q8HR Heart #90 BOTTLE Isosorbide Mononitrate (Isosorbide Mononitrate) 20 Mg Tab 20 MG PO BID@07,14 Heart #60 TAB Levothyroxine (Synthroid) 125 Mcg Tab 125 MCG PO DAILY@06 Thyroid #30 TAB Continued Medications: Allopurinol (Allopurinol) 300 Mg Tab 300 MG PO DAILY Gout #30 Ref 0 TAB Aspirin (Aspirin) 81 Mg Chew 81 MG CHEW DAILY Ref 0 TAB Metoprolol Succinate ER 24 HR (Metoprolol Succinate ER 24 HR) 100 Mg Tab 100 MG PO DAILY #30 Ref 0 TAB Ranitidine (Zantac) 150 Mg Tab 150 MG PO DAILY Reduce Stomach Acid #30 Ref 0 TAB Discontinued Medications: Levothyroxine (Levothyroxine) 75 Mcg Tab 75 MCG PO DAILY Thyroid #30 Ref 0 TAB Losartan (Losartan) 25 Mg Tab 25 MG PO DAILY Blood Pressure Management #30 Ref 0 TAB Cleopatra Pollard DO Aug 21, 2016 10:42 am
== END 2016-08-21 09:55 | disposition home or self-care (01) ==
LOC: NEPC 14:15 → NEDA 08-19 00:29 → INTOOBSV 08-19 00:29 → HCIS 08-19 06:46
PROVIDERS: ADMIT Hospitalist; ATTEND Hospitalist
DX: R53.1 Weakness (principal); I13.0 Hypertensive heart and chronic kidney disease with heart failure and stage 1 through stage 4 chronic kidney disease, or unspecified chronic kidney disease; I50.23 Acute on chronic systolic (congestive) heart failure; N18.3 Chronic kidney disease, stage 3 (moderate); I25.5 Ischemic cardiomyopathy; E78.5 Hyperlipidemia, unspecified; I25.10 Atherosclerotic heart disease of native coronary artery without angina pectoris; E03.9 Hypothyroidism, unspecified; F17.210 Nicotine dependence, cigarettes, uncomplicated; M10.9 Gout, unspecified; M19.90 Unspecified osteoarthritis, unspecified site; I34.0 Nonrheumatic mitral (valve) insufficiency; I27.2 Other secondary pulmonary hypertension; N17.9 Acute kidney failure, unspecified; E78.00 Pure hypercholesterolemia, unspecified; K21.9 Gastro-esophageal reflux disease without esophagitis; Z88.8 Allergy status to other drugs, medicaments and biological substances; Z79.82 Long term (current) use of aspirin; Z95.1 Presence of aortocoronary bypass graft; Z79.899 Other long term (current) drug therapy
CPT/HCPCS: 70450; 71250; 72125; 72128; 72131; 74176; 80053; 80061; 81001; 82306; 82550; 82607; 83690; 83735; 83880; 84436; 84439; 84443; 84480; 84481; 84484; 85025; 85610; 85730; 86850; 86900; 86901; 87086; 90471; 90715; 93005; 93306; 96374; 97163; 97167; 99285; G0378; G8987; G8988; J0690; J1644; J1940; J1956